=== PATIENT | female | born 1940 | race Caucasian/White ===

== ENCOUNTER → 2018-03-31 10:40 | Outpatient (CLI) | payer MEDICARE, SELFPAY | PROVIDERS: Family Provider Internal Medicine; PCP Internal Medicine; Visit Provider Chiropractor | DX: M99.01 Segmental and somatic dysfunction of cervical region (principal); M99.03 Segmental and somatic dysfunction of lumbar region | CPT/HCPCS: 72040; 72110 ==

== ENCOUNTER → 2021-05-06 12:46 | Outpatient (CLI) | payer MEDICARE, SELFPAY ==
[2019-04-18 13:20] VITALS: BMI 27.7
--- NOTE | 2021-05-06 12:54 | CT_ITS ---
EXAM: CT LEFT LOWER EXTREMITY WITHOUT INTRAVENOUS CONTRAST : 1940 CLINICAL INDICATION: VARUS DEFORMITY,NOT ELSEWHERE CLASSIFIED,L KNEE TECHNIQUE: Helically acquired images were obtained of the left lower extremity without intravenous contrast. 2-D reformats were performed by the technologist. This CT exam was performed using one or more of the following dose reduction techniques: automated exposure control, adjustment of the mA and/or kV according to patient size, and/or use of iterative reconstruction technique. This report was created using [employer] report Pix[employer] technology. COMPARISON: None. FINDINGS: BONES/JOINTS: There is severe degenerative changes in the knee with tricompartmental joint space narrowing and large osteophytes. There are no fractures. The hip and ankle joint spaces are maintained. SOFT TISSUES: Unremarkable. No soft tissue swelling or gas. No radiopaque foreign body. CT/Extremity Lower without Contra IMPRESSION: Severe arthritic changes in the knee with tricompartmental joint space narrowing and large osteophytes. There are no acute osseous abnormalities within the left leg. Individualized dose optimization techniques were used for this CT. at 1759 Reported and signed by: Ruben Mcdonald MD Electronically Signed: Ruben Mcdonald MD at 17:58 EDT Tel , Service support ,
== END ==
PROVIDERS: PCP Internal Medicine; Referring Provider Specialist; Visit Provider Specialist
DX: M21.162 Varus deformity, not elsewhere classified, left knee (principal)
CPT/HCPCS: 73700

== ENCOUNTER 2021-05-22 06:29 | Day surgery (SDC) | payer MEDICARE, SELFPAY ==
[2019-04-18 13:20] VITALS: BMI 27.7
--- NOTE | 2021-05-06 13:30 | RAD_ITS ---
INDICATION: PREOP EXAMINATION/TECHNIQUE: X-RAY - XR Chest 2 Views COMPARISON: 12/26/2015. FINDINGS: LINES/DEVICES: None. LUNGS: No consolidation, edema or effusion. No pneumothorax. MEDIASTINUM AND CARDIOVASCULAR STRUCTURES: Cardiac silhouette not enlarged. Central airways and mediastinal contour are unremarkable. BONES AND SOFT TISSUES: Unremarkable. RAD/Chest PA and Lateral IMPRESSION: No radiographic evidence of acute cardiopulmonary disease. Electronically Signed: Ashwin Burnham MD at 14:45 EDT Tel , Service support ,
[2021-05-06 14:42] LABS: Absolute Lymphocyte Count 1.48 X10^3/uL (0.83-4.51); Absolute Neutrophil Count 4.7 X10^3/uL (2.0-7.7); Basophil# 0.02 X10^3/uL; Basophil% 0.3 % (0-1); Eosinophil# 0.12 X10^3/uL; Eosinophils% 1.7 % (0-5); Hematocrit 44.6 % (37-47); Hemoglobin 14.6 g/dL (12.0-15.0); Lymphocyte # 1.48 X10^3/ul (0.83-4.51); Lymphocyte % 21.2 % (19-41); Mean Corp Hgb Conc 32.7 g/dL (32-36); Mean Corpuscular Hgb 28.7 pg (27.0-32.0); Mean Corpuscular Volume 87.6 fL (81-99); Mean Platelet Vol. 9.7 fl (6.2-12.0); Monocyte# 0.61 X10^3/uL; Monocyte% 8.8 % (0-10); NRBC Flagged by Analyzer 0 % (0-5); Neutrophil # 4.71 X10^3/uL (2.7-7.7); Neutrophil % 67.6 % (47-70); Platelet Count 219 K/mm3 (150-450); RBC Distribution Width CV 12.9 % (11.6-14.6); RBC Distribution Width SD 41.1 fl (35.1-43.9); Red Blood Count 5.09 M/mm3 (4.2-5.4)
[2021-05-06 15:23] LABS: Anion Gap 3 (5-15); BUN 18 mg/dL (7-18); BUN/Creat Ratio 23.2 RATIO (10-20); Calcium,Total 9.4 mg/dL (8.5-10.1); Chloride 103 mmol/L (98-107); Creatinine, Serum 0.78 mg/dL (0.55-1.02); EST Glomerular Filtration Rate 76 mL/min (>60); Est Glom Filt Rate - Afr Amer 92 mL/min (>60); Glucose 104 mg/dL (74-106); Potassium 3.8 mmol/L (3.5-5.1); Sodium Level 139 mmol/L (136-145)
[2021-05-07 14:34] LABS: Magnesium 2.3 mg/dL (1.6-2.6); Thyroid Stim Hormone (TSH) 0.57 uIU/mL (0.358-3.74)
--- NOTE | 2021-05-08 09:24 | EKG12_ITS ---
Test Reason : PRE OP Blood Pressure : / mmHG Vent. Rate : 078 BPM Atrial Rate : 078 BPM P-R Int : 166 ms QRS Dur : 086 ms QT Int : 414 ms P-R-T Axes : 024 -42 037 degrees QTc Int : 471 ms Normal sinus rhythm Left axis deviation Poor R wave progression Abnormal ECG Confirmed by ALBA YEN, BENJAMIN ([id number]), newspaper editor managing TENNILLE MENDIOLA ([id number]) on 05/09/2021 9:11:21 AM Referred By: Rahat White Confirmed By:BENJAMIN WILLIS MD
[2021-05-17 11:39] LABS: Albumin, Serum 3.4 g/dL (3.2-5.0)
[2021-05-22] VITALS (12 sets, daily range): BP systolic 89–160; BP diastolic 56–92; PULSE 72–92; RESP 16; TEMP 35.9–37; O2SAT 92–100; BMI 29.0
[2021-05-22] MEDS: Lactated Ringers 1,000 ML 100 ML IV (06:40)
[2021-05-22] MEDS: Gabapentin 600 MG Tablet PO (07:30)
[2021-05-22] MEDS: Acetaminophen 500 MG Tablet 1000 MG PO ×2 (07:30→15:21)
[2021-05-22 07:45] LABS: Bedside Glucose 100 mg/dL (70-110)
[2021-05-22] MEDS: Cefazolin 2 GM in 0.9% Normal Saline 100 ML IV (08:51)
[2021-05-22] MEDS: dexAMETHasone 10 MG/ML Vial IV (09:00)
--- NOTE | 2021-05-22 10:06 | PCM.OPRPT ---
Report of Operation Date of Procedure: 05/22/21 Pre-Operative Diagnosis: Left knee primary osteoarthritis Post-Operative Diagnosis: Left knee primary osteoarthritis Surgery/Procedure Performed:: Left knee minimally invasive robotic assisted total knee replacement Description of Surgical Findings:: Stable knee with good patella tracking Surgeon: Rahat White combat systems officer: Irno Coffman Type of Anesthesia: Spinal Anesthesiologist: Manuel Arriaga Special Medications: 2 g Ancef, 1 g TXA at incision, 1 g TXA closure, 10 mg Decadron, joint cocktail (5 mg Duramorph, 30 mL of 0.5% Ropivicaine, 1000 units of epinephrine, 30 mg of Toradol) Specimen's removed: Bony cuts Estimated Blood Loss (mL): 100 Fluids Replaced: 1200 mL crystalloid Description of Procedure: Implants used: 1. Hcristian size 5 triathlon cruciate retaining distal femoral press-fit component 2. [place] size 5 press-fit tritanium tibial baseplate 3. Christian X3 11 mm CS polyethylene 4. [place] X3 32 mm asymmetric patella Brief history operative indications: 80-year-old M with history of left knee osteoarthritis with radiographic findings with loss of joint space, osteophyte formation and subchondral sclerosis. Failed conservative measures as mentioned in the H&P. Discussion of total knee arthroplasty as well as risk and benefits were discussed the patient including but not limited to blood loss, DVTs, PEs, neurovascular damage, general risk of anesthesia including loss of life, and stiffness or instability were discussed with patient. Patient demonstrated understanding and was able to sign informed consent. Procedure: On the date of procedure patient's left lower extremity was marked in the preoperative area. The patient was then taken back to the operating room where the patient was placed on the table in the supine position. All bony prominences were identified a well-padded. Anesthesia assumed control of the C-spine and airway and remained controlled throughout the remainder of the procedure. A tourniquet was placed on the left upper thigh and the leg was prepped in a sterile fashion. The surgeon then scrubbed at this time .Upon reentering the room left lower extremity was draped in a standard orthopedic fashion. A timeout was then called and everyone agreed upon the side, the site, the procedure to be performed, patient's identity and antibiotics given. Esmarch bandage was used to exsanguinate the extremity and the tourniquet was placed up to 250 mmHg with the knee in flexion. A midline skin incision was made and sharp dissection was taken down through skin subcutaneous tissue and fat. The standard medial parapatellar incision was made and the patella was subluxed laterally. An Appropriate deep MCL release was done and the fat pad was resected. Our attention was then directed to the patella. The patella was everted and a flat resection was made. The knee was then flexed up in 2 femoral pins were placed inside the incision and 2 tibial pins were placed outside the incision in the medial tibia bicortically. Once this was completed the 2 checkpoints in the femur and tibia were placed. Knee was then flexed up and the bony landmarks were registered. Once this was completed knee was taken through range of motion and manually stressed allowing us to a plan for an appropriate tibial cut. The robotic arm was brought into the field sterilely and checkpoint and saw were registered. Based on the patient's deformity the tibial cut was made neutral to the tibial axis. At this time the tensioner was then placed in the joint and ligament tension was checked at 90 degrees and full extension. Based on the patient's ligamentous tension appropriate adjustments were made to the operative plan and ligament releases were done. Once we were happy with our operative plan with balanced flexion and extension gaps our attention was directed to the femur. The robot was brought into the field sterilely and registered. Posterior condylar cuts, anterior chamfer cuts and anterior cuts were appropriately made for a size 5 femur. When these were completed the saws were switched out in the distal femoral and posterior chamfer cuts were made. Protecting the soft tissue throughout this time. A size 5 tibial base plate was selected. the knee was flexed to 90 degrees and the soft tissues and posterior osteophytes were removed from the joint. 40 cc of the periarticular injection was injected into the posterior medial corner of the joint. The appropriate trials were then placed on the femur and tibia. A trial polyethylene was trialed to ensure proper balancing and stability of the knee. The appropriate tibial internal rotation was then marked with a bovie. Our attention was then directed to the patella. The lug holes were drilled and the patella trial was placed. Patellar tracking was checked and deemed appropriate. Once we were happy lug holes were drilled for the femur and trial components were removed. the tibia was subluxed and pinned into place and the keel was punched and drilled appropriately. Final components were verified and opened, and cement was mixed in a vacuum. [place] Simplex cement was used. The wound was copiously irrigated with normal saline. When the cement was ready the components were impacted into place starting with the tibia, femur the femur did not fit well when testing so we did cement the femur the tibia was solidly fixed on testing of press-fit implant. And finally cementing the patella. The trial poly component was placed and the knee was placed in full extension. All excess cement was removed in the process. Once the cement had cured the tracking, alignment and balance were verified and a size 11 mm CS polyethylene component was placed. Once the final components were placed a 3-minute dilute Betadine lavage was performed followed by an Irrisept lavage was performed and the wound was copiously irrigated with normal saline solution and the periarticular injection was given. The wound was closed in a layer martinez fashion using #1 vicryl interrupted sutures for the arthrotomy, 2-0 interrupted Vicryl suture for the subcuticular layer and david for final skin closure. A sterile compressive dressing was then placed. The patient was then awakened from anesthesia, transferred to the [facility] and transferred to the PACU for recovery. Post op plan DVT ppx: ASA 81mg BID, thigh high compression stockings Follow up: in office in 2 weeks for wound check PT: to start POD #0 at hospital, outpatient PT should be arranged. My physician information technology assistant was a vital part of this case. He was important in appropriate retraction during the case, and protection of soft tissues during bony cuts. His intimate knowledge of the case and my steps aided in safe and expedient completion of the procedure as well as appropriate position of the leg during the case. He was also vital in assisting with closure under my direct supervision. Due to the complexity of this case robotic arm was used to assist in the surgery to improve accuracy and clinical outcomes. Complications No intraoperative complications Admit VTE Documentation VTE Present on Admission: No VTE Mechan Device Prophylaxis: SCD's and Thigh High GUERRERO Hose VTE Pharm Prophylaxis ordered?: Yes
[2021-05-22] MEDS: Lactated Ringers 1,000 ML 999 ML IV (10:52)
--- NOTE | 2021-05-22 11:05 | RAD_ITS ---
STUDY: X-RAY - LEFT KNEE REASON FOR EXAM: Postoperative evaluation of left total knee arthroplasty. TECHNIQUE: 2 view(s) of the knee. COMPARISON: CT images 05/06/2021. FINDINGS: There is a left total knee arthroplasty without evidence of complication. There is postoperative gas in the soft tissues and overlying skin david. RAD/Knee 1 or 2 Views IMPRESSION: Uncomplicated left total knee arthroplasty. Electronically Signed: Keon Burrell MD at 11:41 EDT Tel , Service support ,
[2021-05-22] MEDS: Cefazolin 1 GM/50 ML BAG IV (13:46)
== END 2021-05-22 16:44 | disposition home or self-care (01) ==
LOC: SDC 06:30 → AC 06:31
PROVIDERS: Anesthesiology; PCP Internal Medicine; Referring Provider Specialist; Visit Provider Specialist
PROC: 0SRD0JZ Replacement of Left Knee Joint with Synthetic Substitute, Open Approach (ICD-10-PCS; CPT 27447; principal; 2021-05-22 08:15)
DX: M17.12 Unilateral primary osteoarthritis, left knee (principal); I10 Essential (primary) hypertension; J45.909 Unspecified asthma, uncomplicated; G47.30 Sleep apnea, unspecified; K21.9 Gastro-esophageal reflux disease without esophagitis; E78.00 Pure hypercholesterolemia, unspecified; K58.9 Irritable bowel syndrome, unspecified; G43.909 Migraine, unspecified, not intractable, without status migrainosus; E07.9 Disorder of thyroid, unspecified; M19.90 Unspecified osteoarthritis, unspecified site; Z79.899 Other long term (current) drug therapy
CPT/HCPCS: 01402; 27447; S2900; 36415; 71046; 73560; 80048; 82040; 82962; 83735; 84443; 85025; 87081; 93005; 97162; C1776; J7120; J2405

== ENCOUNTER 2021-09-26 12:09 | Outpatient (CLI) | payer MEDICARE, SELFPAY ==
[2021-09-26 12:25] VITALS: BP 143/98; PULSE 81; RESP 16; TEMP 37.1; O2SAT 98; BMI 29.3
[2021-09-26 13:09] VITALS: BP 138/81; PULSE 70; RESP 16; TEMP 36.8; O2SAT 95
[2021-09-26 14:03] VITALS: BP 133/88; PULSE 63; RESP 16; TEMP 36.8; O2SAT 94
== END 2021-09-26 23:59 | disposition home or self-care (01) ==
LOC: MS3OUT 12:09 → MS3 12:10
PROVIDERS: PCP Internal Medicine; Referring Provider Nurse Practitioner Adult Health; Visit Provider Nurse Practitioner Adult Health
DX: Z23 Encounter for immunization (principal); U07.1 COVID-19
CPT/HCPCS: J7050; M0245; Q0245

== ENCOUNTER → 2023-04-01 | Outpatient (CLI) | payer MEDICARE, SELFPAY ==
--- NOTE | 2023-04-01 12:21 | US_ITS ---
INDICATION: UTI EXAMINATION: US Kidney(s) complete (eg, kidneys and bladder) TECHNIQUE: Dumont scale and color doppler images were obtained of the kidneys. COMPARISON: None. FINDINGS: RIGHT KIDNEY: Measures 11 cm in length.. There is no hydronephrosis. No shadowing calculus, focal lesion or perinephric collection is demonstrated. LEFT KIDNEY: Measures 11.9 cm in length.. There is no hydronephrosis. No shadowing calculus, focal lesion or perinephric collection is demonstrated. URINARY BLADDER: No acute abnormality. US/Kidney and Bladder IMPRESSION: Normal renal ultrasound. Electronically Signed: Manny Park MD at 20:52 EDT ,
== END | disposition home or self-care (01) ==
PROVIDERS: PCP Internal Medicine; Referring Provider Urology; Visit Provider Urology
DX: N39.0 Urinary tract infection, site not specified (principal)
CPT/HCPCS: 76770

== ENCOUNTER 2023-12-28 02:25 | Emergency (ER) | payer MEDICARE, SELFPAY ==
[2023-12-28 02:26] VITALS: BP 198/108; PULSE 85; RESP 16; TEMP 37.1; O2SAT 92; BMI 31.3
[2023-12-28 02:32] VITALS: BP 183/102; PULSE 82; RESP 18; O2SAT 96
--- NOTE | 2023-12-28 02:36 | EKG12_ITS ---
Test Reason : DYSRHYTHMIA Blood Pressure : / mmHG Vent. Rate : 082 BPM Atrial Rate : 082 BPM P-R Int : 196 ms QRS Dur : 112 ms QT Int : 404 ms P-R-T Axes : 014 -54 008 degrees QTc Int : 472 ms Normal sinus rhythm Left anterior fascicular block Moderate voltage criteria for LVH, may be normal variant ( R in aVL , [place] product ) Abnormal ECG POOR R WAVE PROGRESSION Confirmed by Gilberto Fraser ([id number]), web editor BAN CALLAHAN ([id number]) on 12/28/2023 10:02:44 AM Referred By: Confirmed By:Gilberto Fraser
--- NOTE | 2023-12-28 02:54 | CT_ITS ---
INDICATION: headache EXAMINATION: CT Head or Brain W/O Contrast Injection TECHNIQUE: Multiple axial images were obtained of the head without intravenous contrast. A radiation dose optimization technique was used for this scan. IV Contrast dosage and agent: None. COMPARISON: No comparison imaging received. CT brain report from 10/11/2015 is reviewed. FINDINGS: BRAIN PARENCHYMA: No intra- or extra-axial hemorrhage. No evidence of acute major territorial infarct. No intracranial mass or mass effect. 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 Chronic cerebral involutional changes. CSF SPACES: Prominent cerebral sulci and extraaxial spaces secondary to involutional changes. No hydrocephalus. Basal cisterns are patent. Intracranial atherosclerotic calcifications. 12 mm calcification just to the right of medulla below foramen magnum. CALVARIUM, SKULL BASE, PARANASAL SINUSES AND MASTOID AIR CELLS: Calvarium is intact. 17 mm ovoid medium attenuation structure at abutting left anterior maxilla at anterior nasal cavity. Mastoid air cells are well-pneumatized. ORBITS: No acute findings, as visualized. CT/Brain/Head without Contrast IMPRESSION: 1. Cerebral atrophy and chronic small vessel ischemic changes. 2. Small intraspinal, extramedullary calcification at right cervicomedullary junction possibly representing small chronic calcified meningioma or prominent vascular calcification. Follow-up as clinically warranted. 3. Probable polyp versus proteinaceous cyst or dentigerous cyst at left nasomaxillary junction. Correlate visually and with physical exam. This was also described in prior report. Electronically Signed: Simon Mcnamara MD at 3:53 EDT ,
--- NOTE | 2023-12-28 03:00 | EX.ED.DYSGE1 ---
HPI History of Present Illness Chief Complaint: Hypertension Informant: patient and spouse/S.O. Narrative Narrative: Patient is a 83-year-old female who lives at home with her with past medical history of hypertension and hypothyroidism. She states that she has been taking her blood pressure medications as directed. She denies any excessive stimulant use or illicit drug use. She does state that there has been a great deal of stress occurring at home. She states she went to bed feeling normal and then awoke with a headache and some tingling in her left arm. She states that a few times in the past she has had similar symptoms when her blood pressure has spiked. She states she checked her pressure at home because of this and it was elevated. She states she tried to relax and allow the blood pressure to improve but it has not done so and secondary to this she comes in for evaluation [facility] Medical History Arthritis Back pain Cardiology follow-up encounter Chronic bronchitis Chronic cough Chronic headaches CPAP (continuous positive airway pressure) dependence DDD (degenerative disc disease), lumbar Environmental allergies Gastric reflux High cholesterol High triglycerides History of echocardiogram History of IBS History of pain when walking History of stress test Hx of fracture of arm Hx of sebaceous cyst Hypertension IBS (irritable bowel syndrome) Migraine headache Non-smoker Osteoarthritis Rash Sleep apnea Thyroid disease Wears glasses Home Medications carvedilol 12.5 mg tablet 12.5 mg PO BID 10/11/15 [History Last Taken 05/22/21] levothyroxine 175 mcg tablet 175 mcg PO SUTUWETHFRSA 10/11/15 [History Last Taken Unknown] lisinopril 20 mg tablet 20 mg PO QHS 10/11/15 [History Last Taken Unknown] montelukast 10 mg tablet 10 mg PO QHS 10/11/15 [History Last Taken Unknown] potassium chloride 10 mEq tablet,extended release(part/cryst) 20 meq PO DAILY 10/11/15 [History Last Taken Unknown] L.acidoph, paracasei,B. lactis 10 billion cell capsule 1 ea PO DAILY 02/04/17 [History Last Taken Unknown] amlodipine 5 mg tablet 2.5 mg PO DAILY 02/04/17 [History Last Taken Unknown] biotin 1 mg tablet 1 mg PO DAILY 02/04/17 [History Last Taken Unknown] desloratadine 5 mg tablet (Clarinex) 5 mg PO DAILY 02/04/17 [History Last Taken Unknown] multivitamin (Multiple Vitamins tablet) 1 tab PO DAILY 02/04/17 [History Last Taken Unknown] albuterol sulfate 90 mcg/actuation aerosol inhaler 1 puff inhalation PRN PRN asthma 05/07/21 [History Last Taken Unknown] fluticasone propionate 110 mcg/actuation HFA aerosol inhaler (Flovent HFA) 2 puff inhalation BID asthma 05/07/21 [History Last Taken Unknown] levothyroxine 150 mcg tablet 150 mcg PO MO 05/07/21 [History Last Taken 05/22/21] omeprazole 40 mg capsule,delayed release 40 mg PO DAILY 05/07/21 [History Last Taken 05/22/21] vit C 250 mg-vit E 90 mg-zinc 40 mg-copper 1 [id number] capsule (PreserVision AREDS-2) 1 tab PO BID 05/07/21 [History Last Taken Unknown] Allergy/AdvReac Type Severity Reaction Status Date / Time Sulfa (Sulfonamide Allergy Swelling Verified 12/28/23 02:26 Antibiotics) azithromycin AdvReac Diarrhea Verified 12/28/23 02:26 [From Zithromax Z-Riky] codeine AdvReac Vomiting Verified 12/28/23 02:26 Opioids - Morphine Analogues AdvReac NAUSEA/VOMI Verified 12/28/23 02:26 [narcotics] TING Penicillins AdvReac Other Verified 12/28/23 02:26 Surgical History History of cardiac catheterization History of total right knee replacement Hx of bladder repair surgery Hx of hysterectomy, total Hx of inguinal hernia surgery Hx of left knee surgery Hx of tubal ligation Hx of varicose vein stripping Social History Smoking Status: Never smoker ROS ROS ED Constitutional Constitutional ED: Denies chills or fever(s) Eyes Eyes: Denies blurry vision or change in vision ENT ENT ED: Denies sore throat Cardiovascular Cardiovascular: Denies chest pain, palpitations or racing heartbeat Respiratory/Chest Respiratory/Chest: Denies cough or dyspnea Gastrointestinal Gastrointestinal: Denies abdominal pain, diarrhea, nausea or vomiting Genitourinary Genitourinary ED: Denies dysuria Musculoskeletal Musculoskeletal: Denies myalgias Integumentary Denies rash Neurologic Neurologic: Reports headache(s) and paresthesias Hematologic/Lymphatic Hematologic/Lymphatic: Denies easy bleeding or easy bruising EXAM Physical Exam Const Vital Signs: 12/28/23 02:26 12/28/23 02:30 12/28/23 02:32 Temperature 98.8 F Temperature Source Oral Pulse Rate 85 82 Respiratory Rate 16 18 Respiratory Effort Non-Labored Respiratory Pattern Normal Blood Pressure 198/108 H 183/102 H Blood Pressure Mean 138 129 Pulse Ox 92 96 Oxygen Delivery Method Room Air 12/28/23 04:09 Temperature Temperature Source Pulse Rate 76 Respiratory Rate 20 H Respiratory Effort Respiratory Pattern Blood Pressure 130/91 H Blood Pressure Mean 104 Pulse Ox 93 Oxygen Delivery Method Room Air Positive well nourished and well developed General Appearance ED: well developed; Negative for pallor HEENT HEENT Narrative: Normocephalic atraumatic Eyes PERRL and EOMs intact bilaterally General Eye ED: Negative for pale conjunctiva or scleral icterus Neck supple Neck Narrative: No nuchal rigidity or meningeal signs Resp normal respiratory effort and clear to auscultation bilaterally Resp Narrative: No nasal flaring retractions tachypnea or accessory muscle use Cardio regular rate and regular rhythm Rate: other Other Details: Heart is regular rate and rhythm without murmurs rubs or gallops Radial and carotid pulses are equal and symmetric No carotid bruit noted GI normal to inspection, nondistended, normoactive bowel sounds, non-tender, non-distended and no masses GI Narrative: No voluntary guarding or rigidity No pulsatile mass or fluid wave Auscultation: normoactive bowel sounds Palpation: soft Extremity normal to inspection Extremity Narrative: No asymmetric edema no pitting edema negative Homans' sign bilaterally Neuro oriented x3, CN's II-XII intact bilaterally and no sensory deficits noted Neuro Narrative: Cranial nerves II through XII are grossly intact there are no focal neurologic deficits No pronator drift no dysmetria no truncal ataxia NIH stroke scale score of 0 Sensorium / Orientation: alert Motor Exam: strength 5/5 throughout Psych mental status grossly normal Skin no rashes or lesions noted, no wounds and skin turgor normal General Skin Exam: Negative for jaundice or pallor MDM MDM MDM Narrative Medical decision making narrative: Patient arrived to the ER hypertensive otherwise with stable vitals. She reported taking her medications as directed and denied any history of illicit drug use or excessive stimulant use. She did report recent stress factors at home which are most likely driving her hypertension. She had a normal neurologic exam and no signs of endorgan damage but with concern for hypertension driving her headache which could lead to a spontaneous subarachnoid versus subdural hematoma or potential acute coronary syndrome or acute kidney injury basic blood tests and head CT were obtained. Labs revealed no signs of acute ACS with a troponin of 4 and no signs of acute kidney injury. Head CT revealed no acute bleed or mass. Patient was given IV labetalol and oral clonidine and her blood pressure reduced approximately 25% which is the goal reduction value in the ER. On reevaluation her neurologic exam remains normal and therefore she does not have signs of acute coronary syndrome spontaneous brain bleed acute kidney injury or hypertensive encephalopathy and her blood pressure has reduced the goal amount there is no need to keep her in the ER any longer and she is otherwise safe for discharge. History & Record Review Discussion w/independent historian: Patient and Significant other Lab Data Attestation: I reviewed the patient's lab results. Labs: Laboratory Results - last 24 hr 12/28/23 02:39 WBC 7.9 RBC 5.12 Hgb 14.7 Hct 45.5 MCV 88.9 MCH 28.7 MCHC 32.3 RDW Std Deviation 42.5 RDW Coeff of Collin 13.0 Plt Count 215 MPV 9.1 Immature Gran % (Auto) 0.400 Neut % (Auto) 63.3 Lymph % (Auto) 22.1 [place] % (Auto) 11.5 H Eos % (Auto) 2.4 Baso % (Auto) 0.3 Absolute Neuts (auto) 5.0 Absolute Lymphs (auto) 1.75 Nucleated RBC % 0 Sodium 138 Potassium 3.8 Chloride 102 Carbon Dioxide 31.0 Anion Gap 5 BUN 21 H Creatinine 0.72 Estim Creat Clear Calc 61.63 Est GFR (MDRD) Af Amer 100 Est GFR (MDRD) Non-Af 82 BUN/Creatinine Ratio 29.1 H Glucose 121 H Calcium 9.1 Troponin I High Sens 4 Radiography Diagnostic Testing: Clinical Impression(s) from Imaging Studies Brain CT 12/28/23 02:54 IMPRESSION: 1. Cerebral atrophy and chronic small vessel ischemic changes. 2. Small intraspinal, extramedullary calcification at right cervicomedullary junction possibly representing small chronic calcified meningioma or prominent vascular calcification. Follow-up as clinically warranted. 3. Probable polyp versus proteinaceous cyst or dentigerous cyst at left nasomaxillary junction. Correlate visually and with physical exam. This was also described in prior report. Electronically Signed: Simon Mcnamara MD at 3:53 EDT , Discharge Plan Triage Chief Complaint: Hypertension ED Provider: Dmitry Luther Dx/Rx/DC Orders Clinical Impression: Accelerated hypertension, Hypothyroidism Instructions: ED Hypertension, Established Prescriptions: No Action levothyroxine 175 MCG tablet 175 mcg PO SUTUWETHFRSA Patient Comments: thyroid carvedilol 12.5 MG tablet 12.5 mg PO BID Patient Comments: heart rate/ blood pressure lisinopril 20 MG tablet 20 mg PO QHS Patient Comments: blood pressure montelukast 10 MG tablet 10 mg PO QHS Patient Comments: allergies potassium chloride 10 MEQ tablet 20 meq PO DAILY Patient Comments: supplement multivitamin [Multiple Vitamins] 1 EACH tablet 1 tab PO DAILY amlodipine 5 MG tablet 2.5 mg PO DAILY desloratadine [Clarinex] 5 MG tablet 5 mg PO DAILY biotin 1 MG tablet 1 mg PO DAILY L.acidoph, paracasei,B. lactis 1 EACH capsule 1 ea PO DAILY omeprazole 40 mg capsule,delayed release(DR/EC) 40 mg PO DAILY Patient Comments: take 1 capsule by mouth once daily levothyroxine 150 mcg Tablet 150 mcg PO MO albuterol sulfate 90 mcg/actuation HFA aerosol inhaler 1 puff INHALATION PRN PRN (Reason: asthma) Patient Comments: inhale 2 puffs by mouth and INTO THE LUNGS every 4 hours if needed for wheezing SHORTNESS OF BREATH fluticasone propionate [Flovent HFA] 110 mcg/actuation HFA aerosol inhaler 2 puff INHALATION BID PreserVision AREDS-2 250-90-40-1 mg Capsule 1 tab PO BID Primary Care Provider: Shandra Bills Referrals: Shandra Bills MD [Primary Care Provider] - Activity Restrictions/Additional Instructions: Please continue all of your medication as directed by your family doctor. Please keep track of your blood pressure a few times each week and discuss with your doctor potential need for additional or increase of medication if it remains elevated. Return to the ER should you have worsening symptoms or any further concerns Disposition Disposition: Home, Self Care
[2023-12-28] MEDS: Labetalol (Prefilled) 20 MG/4 ML 10 MG IV (03:03)
[2023-12-28] MEDS: cloNIDine HCl 0.1 MG Tablet PO (03:03)
[2023-12-28 03:04] LABS: Absolute Lymphocyte Count 1.75 X10^3/uL (0.83-4.51); Basophil# 0.02 X10^3/uL; Basophil% 0.3 % (0-1); Eosinophil# 0.19 X10^3/uL; Eosinophils% 2.4 % (0-5); Hematocrit 45.5 % (37-47); Hemoglobin 14.7 g/dL (12.0-15.0); Lymphocyte # 1.75 X10^3/ul (0.83-4.51); Lymphocyte % 22.1 % (19-41); Mean Corp Hgb Conc 32.3 g/dL (32-36); Mean Corpuscular Hgb 28.7 pg (27.0-32.0); Mean Corpuscular Volume 88.9 fL (81-99); Mean Platelet Vol. 9.1 fl (6.2-12.0); Monocyte# 0.91 X10^3/uL; Monocyte% 11.5 % (0-10); NRBC Flagged by Analyzer 0 % (0-5); Neutrophil # 5.01 X10^3/uL (2.7-7.7); Neutrophil % 63.3 % (47-70); Platelet Count 215 K/mm3 (150-450); RBC Distribution Width SD 42.5 fl (35.1-43.9); Red Blood Count 5.12 M/mm3 (4.2-5.4); White Blood Count 7.9 K/mm3 (4.4-11.0)
[2023-12-28 03:23] LABS: Anion Gap 5 (5-15); BUN 21 mg/dL (7-18); BUN/Creat Ratio 29.1 RATIO (10-20); Calcium,Total 9.1 mg/dL (8.5-10.1); Chloride 102 mmol/L (98-107); Creatinine, Serum 0.72 mg/dL (0.55-1.02); EST Glomerular Filtration Rate 82 mL/min (>60); Est Glom Filt Rate - Afr Amer 100 mL/min (>60); Estimated Creatinine Clearance 61.63 ml/min; Glucose 121 mg/dL (74-106); Potassium 3.8 mmol/L (3.5-5.1); Sodium Level 138 mmol/L (136-145); Troponin-I HS 4 pg/mL (3.0-54.0)
[2023-12-28 04:09] VITALS: BP 130/91; PULSE 76; RESP 20; O2SAT 93
[2023-12-28 04:25] VITALS: BP 115/79; PULSE 72; RESP 17; O2SAT 92
[2023-12-28 04:29] VITALS: BP 115/79; PULSE 71; RESP 20; TEMP 36.7; O2SAT 92
== END 2023-12-28 04:30 | disposition home or self-care (01) ==
PROVIDERS: Emergency Provider Emergency Medicine; PCP Internal Medicine; Visit Provider Emergency Medicine
DX: I10 Essential (primary) hypertension (principal); E03.9 Hypothyroidism, unspecified; Z79.899 Other long term (current) drug therapy; G47.30 Sleep apnea, unspecified; Z99.89 Dependence on other enabling machines and devices; E78.00 Pure hypercholesterolemia, unspecified; Z96.651 Presence of right artificial knee joint; Z90.710 Acquired absence of both cervix and uterus; Z98.51 Tubal ligation status
CPT/HCPCS: 70450; 80048; 84484; 85025; 93005; 96374; 99283; A4216

== ENCOUNTER 2024-02-10 15:31 | Emergency (ER) | payer MEDICARE, SELFPAY ==
[2024-02-10 15:32] VITALS: BP 173/103; PULSE 85; RESP 16; TEMP 36.8; O2SAT 96; BMI 30.9
--- NOTE | 2024-02-10 15:47 | EDS_ITS ---
HPI History of Present Illness Chief Complaint: Nosebleed Narrative Narrative: 83-year-old female past medical history of sleep apnea on pillow nasal cannula and CPAP presents with nosebleed since yesterday. She states that she had blood coming from her right nares 3-4 times yesterday. It was intermittent and had stopped. She made it through the night. This morning, she was sitting, she felt her nosebleeding again. She denies any chest pain or shortness of breath, states she may feel intermittently lightheaded. She denies other bleeding diathesis. She does not take blood thinners with exception of a baby aspirin. [facility] Medical History Wears glasses Rash Thyroid disease Arthritis Back pain Migraine headache History of IBS Gastric reflux Non-smoker CPAP (continuous positive airway pressure) dependence Sleep apnea Chronic cough History of pain when walking History of echocardiogram History of stress test Hypertension Cardiology follow-up encounter Hx of sebaceous cyst Hx of fracture of arm DDD (degenerative disc disease), lumbar Osteoarthritis IBS (irritable bowel syndrome) High triglycerides High cholesterol Chronic headaches Chronic bronchitis Environmental allergies Home Medications ?Medication ?Instructions ?Recorded ?Last Taken ?Type carvedilol 12.5 mg tablet 12.5 mg PO BID 10/11/15 05/22/21 History levothyroxine 175 mcg tablet 175 mcg PO SUTUWETHFRSA 10/11/15 Unknown History lisinopril 20 mg tablet 20 mg PO QHS 10/11/15 Unknown History montelukast 10 mg tablet 10 mg PO QHS 10/11/15 Unknown History potassium chloride 10 mEq 20 meq PO DAILY 10/11/15 Unknown History tablet,extended release(part/cryst) L.acidoph, paracasei,B. lactis 10 1 ea PO DAILY 02/04/17 Unknown History billion cell capsule amlodipine 5 mg tablet 2.5 mg PO DAILY 02/04/17 Unknown History biotin 1 mg tablet 1 mg PO DAILY 02/04/17 Unknown History desloratadine 5 mg tablet 5 mg PO DAILY 02/04/17 Unknown History (Clarinex) multivitamin (Multiple Vitamins 1 tab PO DAILY 02/04/17 Unknown History tablet) albuterol sulfate 90 mcg/actuation 1 puff inhalation PRN PRN asthma 05/07/21 Unknown History aerosol inhaler fluticasone propionate 110 2 puff inhalation BID asthma 05/07/21 Unknown History mcg/actuation HFA aerosol inhaler (Flovent HFA) levothyroxine 150 mcg tablet 150 mcg PO MO 05/07/21 05/22/21 History omeprazole 40 mg capsule,delayed 40 mg PO DAILY 05/07/21 05/22/21 History release vit C 250 mg-vit E 90 mg-zinc 40 1 tab PO BID 05/07/21 Unknown History mg-copper 1 [id number] capsule (PreserVision AREDS-2) Allergy/AdvReac Type Severity Reaction Status Date / Time Sulfa (Sulfonamide Allergy Swelling Verified 02/10/24 15:34 Antibiotics) azithromycin (From Zithromax AdvReac Diarrhea Verified 02/10/24 15:34 Z-Riky) codeine AdvReac Vomiting Verified 02/10/24 15:34 Opioids - Morphine Analogues AdvReac NAUSEA/VOMI Verified 02/10/24 15:34 (narcotics) TING Penicillins AdvReac Other Verified 02/10/24 15:34 Surgical History History of cardiac catheterization Hx of varicose vein stripping Hx of left knee surgery Hx of tubal ligation Hx of hysterectomy, total Hx of inguinal hernia surgery Hx of bladder repair surgery History of total right knee replacement Social History Smoking Status: Never smoker ROS ROS ED ROS Narrative Constitutional: No fever, no chills. HEENT: No sore throat. No neck pain. No loss of vision. No rhinorrhea. Positive epistaxis right nares. Cardiovascular: No chest pain. No palpitations. No pedal edema. Respiratory: No cough, no shortness of breath. Abdominal: No abdominal pain. No nausea. No vomiting. Genitourinary: No dysuria. No hematuria. Musculoskeletal: No myalgias. No arthralgias. Neurologic: No headaches. No dizziness. No lightheadedness. Skin: No rash. No change in color. Psychiatric: No depression. No anxiety. EXAM Physical Exam Narrative Exam Narrative: Afebrile. Vital signs noted. Regular rate and rhythm. Lungs clear to auscultation bilaterally. Abdomen soft nontender with normal active bowel sounds. Neurological examination shows her to be awake, alert, and ambulatory. Moves all extremities. No noted bleeding diathesis. Has Kleenex stuffed in right nares. No posterior pharynx rapid bleeding. Const Vital Signs: 02/10/24 15:32 Temperature 98.2 F Temperature Source Temporal Pulse Rate 85 Respiratory Rate 16 Blood Pressure 173/103 H Blood Pressure Mean 126 Pulse Ox 96 Oxygen Delivery Method Room Air MDM MDM MDM Narrative Medical decision making narrative: I discussion with the patient regarding nasal packing. She is concerned because she may need to wear her CPAP at night. This may be the cause of her epistaxis because of dry tissues. I will anesthetize the area with a cotton balls soaked in lidocaine 4% and Afrin after she clears any clots from the right nares. After cottonball was removed, there seems to be an area of anterior bleeding at Olegario backs area. Silver nitrate was used to cauterize the area. After 10 to 15 minutes, she was reexamined. There is no epistaxis, and there is no posterior pharynx bleeding. At this point in time, I feel she can be discharged to follow-up with otolaryngology. She will return with increased bleeding, new or worsening symptoms. Disposition is discharged home in improved and stable condition. Discharge Plan Triage Chief Complaint: Nosebleed ED Provider: Mingo Landis Dx/Rx/DC Orders Clinical Impression: Epistaxis Instructions: ED Epistaxis (Adult) Prescriptions: No Action levothyroxine 175 MCG tablet 175 mcg PO SUTUWETHFRSA Patient Comments: thyroid carvedilol 12.5 MG tablet 12.5 mg PO BID Patient Comments: heart rate/ blood pressure lisinopril 20 MG tablet 20 mg PO QHS Patient Comments: blood pressure montelukast 10 MG tablet 10 mg PO QHS Patient Comments: allergies potassium chloride 10 MEQ tablet 20 meq PO DAILY Patient Comments: supplement multivitamin [Multiple Vitamins] 1 EACH tablet 1 tab PO DAILY amlodipine 5 MG tablet 2.5 mg PO DAILY desloratadine [Clarinex] 5 MG tablet 5 mg PO DAILY biotin 1 MG tablet 1 mg PO DAILY L.acidoph, paracasei,B. lactis 1 EACH capsule 1 ea PO DAILY omeprazole 40 mg capsule,delayed release(DR/EC) 40 mg PO DAILY Patient Comments: take 1 capsule by mouth once daily levothyroxine 150 mcg Tablet 150 mcg PO MO albuterol sulfate 90 mcg/actuation HFA aerosol inhaler 1 puff INHALATION PRN PRN (Reason: asthma) Patient Comments: inhale 2 puffs by mouth and INTO THE LUNGS every 4 hours if needed for wheezing SHORTNESS OF BREATH fluticasone propionate [Flovent HFA] 110 mcg/actuation HFA aerosol inhaler 2 puff INHALATION BID PreserVision AREDS-2 250-90-40-1 mg Capsule 1 tab PO BID Primary Care Provider: Shandra Bills Referrals: Manny Yanez MD [Med Staff - Active Staff] - 3-5 Days Shandra Bills MD [Primary Care Provider] - Activity Restrictions/Additional Instructions: Return with increased bleeding, new or worsening symptoms. Print Language: Sami Disposition Disposition: Home, Self Care
[2024-02-10] MEDS: Oxymetazoline 0.05% 1 SPRAY SPRAY.BTL 2 SPRAY NASAL (15:52)
[2024-02-10] MEDS: Lidocaine 4% 50 ML Bottle TOPICAL (15:53)
[2024-02-10] MEDS: Silver Nitrate (BKC) 1 EACH TOPICAL (16:26)
== END 2024-02-10 17:02 | disposition home or self-care (01) ==
PROVIDERS: Emergency Provider Emergency Medicine; PCP Internal Medicine; Visit Provider Emergency Medicine
DX: R04.0 Epistaxis (principal); G47.30 Sleep apnea, unspecified; Z99.89 Dependence on other enabling machines and devices; Z79.82 Long term (current) use of aspirin; I10 Essential (primary) hypertension; E78.00 Pure hypercholesterolemia, unspecified; Z79.899 Other long term (current) drug therapy; K21.9 Gastro-esophageal reflux disease without esophagitis; Z98.51 Tubal ligation status; Z90.710 Acquired absence of both cervix and uterus; Z96.651 Presence of right artificial knee joint
CPT/HCPCS: 30901; 99282

== ENCOUNTER 2024-02-16 19:49 | Emergency (ER) | payer MEDICARE, SELFPAY ==
[2024-02-16 19:50] VITALS: BP 207/113; PULSE 88; RESP 16; TEMP 37; O2SAT 100; BMI 30.8
[2024-02-16 20:22] VITALS: BP 158/99
[2024-02-16 22:00] VITALS: BP 165/105; PULSE 78; RESP 18; O2SAT 98
[2024-02-16] MEDS: Mixture 30 ML Bottle 5 ML TOPICAL (22:10)
[2024-02-16] MEDS: Acetaminophen 325 MG Tablet 650 MG PO (23:10)
[2024-02-16 23:11] VITALS: BP 164/101; PULSE 77; RESP 16; TEMP 37; O2SAT 98
--- NOTE | 2024-02-16 23:50 | EDS_ITS ---
HPI History of Present Illness Chief Complaint: Nosebleed Informant: patient and spouse/S.O. Narrative Narrative: 83-year-old female history of variable hypertension presenting to the emergency room with epistaxis. Patient states symptoms began abruptly prior to arrival. She notes that her blood pressure is typically very high and then down suddenly. She states it is not abnormal for her to have such variation. She states she was in the emergency department out 2 weeks ago for an anterior epistaxis. She states they used silver nitrate and some medicine to help shrink the blood vessel. She did not have to follow-up with anybody. She did start aspirin a couple days ago. [facility] Medical History Wears glasses Rash Thyroid disease Arthritis Back pain Migraine headache History of IBS Gastric reflux Non-smoker CPAP (continuous positive airway pressure) dependence Sleep apnea Chronic cough History of pain when walking History of echocardiogram History of stress test Hypertension Cardiology follow-up encounter Hx of sebaceous cyst Hx of fracture of arm DDD (degenerative disc disease), lumbar Osteoarthritis IBS (irritable bowel syndrome) High triglycerides High cholesterol Chronic headaches Chronic bronchitis Environmental allergies Home Medications ?Medication ?Instructions ?Recorded ?Last Taken ?Type carvedilol 12.5 mg tablet 12.5 mg PO BID 10/11/15 05/22/21 History levothyroxine 175 mcg tablet 175 mcg PO SUTUWETHFRSA 10/11/15 Unknown History lisinopril 20 mg tablet 20 mg PO QHS 10/11/15 Unknown History montelukast 10 mg tablet 10 mg PO QHS 10/11/15 Unknown History potassium chloride 10 mEq 20 meq PO DAILY 10/11/15 Unknown History tablet,extended release(part/cryst) L.acidoph, paracasei,B. lactis 10 1 ea PO DAILY 02/04/17 Unknown History billion cell capsule amlodipine 5 mg tablet 2.5 mg PO DAILY 02/04/17 Unknown History biotin 1 mg tablet 1 mg PO DAILY 02/04/17 Unknown History multivitamin (Multiple Vitamins 1 tab PO DAILY 02/04/17 Unknown History tablet) albuterol sulfate 90 mcg/actuation 1 puff inhalation PRN PRN asthma 05/07/21 Unknown History aerosol inhaler fluticasone propionate 110 2 puff inhalation BID asthma 05/07/21 Unknown History mcg/actuation HFA aerosol inhaler (Flovent HFA) levothyroxine 150 mcg tablet 150 mcg PO MO 05/07/21 05/22/21 History vit C 250 mg-vit E 90 mg-zinc 40 1 tab PO BID 05/07/21 Unknown History mg-copper 1 [id number] capsule (PreserVision AREDS-2) Allergy/AdvReac Type Severity Reaction Status Date / Time Sulfa (Sulfonamide Allergy Swelling Verified 02/16/24 19:52 Antibiotics) azithromycin (From Zithromax AdvReac Diarrhea Verified 02/16/24 19:52 Z-Riky) codeine AdvReac Vomiting Verified 02/16/24 19:52 Opioids - Morphine Analogues AdvReac NAUSEA/VOMI Verified 02/16/24 19:52 (narcotics) TING Penicillins AdvReac Other Verified 02/16/24 19:52 Surgical History History of cardiac catheterization Hx of varicose vein stripping Hx of left knee surgery Hx of tubal ligation Hx of hysterectomy, total Hx of inguinal hernia surgery Hx of bladder repair surgery History of total right knee replacement Social History Smoking Status: Never smoker ROS ROS ED Constitutional Constitutional ED: Denies chills, fever(s) or weight loss Eyes Eyes: Denies change in vision or diplopia ENT ENT ED: Reports other Details: Epistaxis ; Denies ear pain, rhinorrhea or sore throat Cardiovascular Cardiovascular: Denies chest pain, orthopnea, palpitations or racing heartbeat Respiratory/Chest Respiratory/Chest: Denies cough, dyspnea or orthopnea Gastrointestinal Gastrointestinal: Denies abdominal pain, diarrhea, nausea or vomiting Genitourinary Genitourinary ED: Denies dysuria, hematuria or urinary frequency Musculoskeletal Musculoskeletal: Denies arthralgias or myalgias Integumentary Denies abscess or rash Neurologic Neurologic: Denies headache(s) or weakness Psychiatric Psychiatric: Denies anxiety, depression, suicidal ideation or suicidal thoughts Endocrine Endocrinology: Denies polydipsia, polyphagia or polyuria Allergic/Immunologic Allergic/Immunologic ED: Denies mouth swelling, tongue swelling or urticaria EXAM Physical Exam Const Vital Signs: 02/16/24 19:50 02/16/24 20:22 02/16/24 22:00 Temperature 98.6 F Temperature Source Temporal Pulse Rate 88 78 Respiratory Rate 16 18 Blood Pressure 207/113 H 158/99 H 165/105 H Blood Pressure Mean 144 118 125 Pulse Ox 100 98 02/16/24 23:11 Temperature 98.6 F Temperature Source Pulse Rate 77 Respiratory Rate 16 Blood Pressure 164/101 H Blood Pressure Mean 122 Pulse Ox 98 Positive well nourished and well developed General Appearance ED: well developed HEENT Reports normocephalic, head/scalp atraumatic and moist mucous membranes HEENT Narrative: There is an apparent large arterial bleeding in the anterior plexus on the right naris. It appears to have some pulsatile bleeding. There were some initial clots that removed by the patient blowing. Eyes PERRL and EOMs intact bilaterally Neck no lymphadenopathy, supple and no JVD Resp normal respiratory effort and clear to auscultation bilaterally Cardio regular rate, regular rhythm and no murmurs GI normal to inspection, nondistended, normoactive bowel sounds and non-tender Palpation: soft Back/Spine no CVA tenderness and normal ROM Extremity normal to inspection General Extremety ED: Negative for edema General Extremity: Negative for edema Neuro oriented x3 and CN's II-XII intact bilaterally Sensorium / Orientation: alert Motor Exam: strength 5/5 throughout Psych mental status grossly normal Mood & Affect: Negative for depressed or tearful Skin no rashes or lesions noted and no wounds MDM MDM MDM Narrative Medical decision making narrative: Direct pressure using nasal pincers did not stop the bleeding. I placed Manny max on a cottonball placed that inside the naris and applied pincers. This also did not stop the bleeding. I then placed a anterior Rhino Rocket inflated with 2-1/2 cc of air. This appeared to stop the bleeding. Patient was advised that I recommend leaving this in place for approximately 3 days if she can tolerate it. I did recommend ENT follow-up. Syringe was given to the to use if it needs to be emergently removed. Patient was noted to be significantly hypertensive but has come down. She will continue to monitor. History & Record Review Discussion w/independent historian: Patient and Family Discharge Plan Triage Chief Complaint: Nosebleed ED Provider: Ludin Burns Dx/Rx/DC Orders Clinical Impression: Acute anterior epistaxis Instructions: ED Epistaxis (Adult) Prescriptions: No Action levothyroxine 175 MCG tablet 175 mcg PO SUTUWETHFRSA Patient Comments: thyroid carvedilol 12.5 MG tablet 12.5 mg PO BID Patient Comments: heart rate/ blood pressure lisinopril 20 MG tablet 20 mg PO QHS Patient Comments: blood pressure montelukast 10 MG tablet 10 mg PO QHS Patient Comments: allergies potassium chloride 10 MEQ tablet 20 meq PO DAILY Patient Comments: supplement multivitamin [Multiple Vitamins] 1 EACH tablet 1 tab PO DAILY amlodipine 5 MG tablet 2.5 mg PO DAILY biotin 1 MG tablet 1 mg PO DAILY L.acidoph, paracasei,B. lactis 1 EACH capsule 1 ea PO DAILY levothyroxine 150 mcg Tablet 150 mcg PO MO albuterol sulfate 90 mcg/actuation HFA aerosol inhaler 1 puff INHALATION PRN PRN (Reason: asthma) Patient Comments: inhale 2 puffs by mouth and INTO THE LUNGS every 4 hours if needed for wheezing SHORTNESS OF BREATH fluticasone propionate [Flovent HFA] 110 mcg/actuation HFA aerosol inhaler 2 puff INHALATION BID PreserVision AREDS-2 250-90-40-1 mg Capsule 1 tab PO BID Primary Care Provider: Shandra Bills Referrals: Manny Yanez MD [Med Staff - Active Staff] - (in 3 days) Shandra Bills MD [Primary Care Provider] - Activity Restrictions/Additional Instructions: If you are unable to see ENT on Thursday deflate the balloon and you may pull the packing yourself. If you have recurrent nosebleed return to emergency Print Language: Malaysian Disposition Disposition: Home, Self Care Discharge Date/Time: 02/16/24 23:14
== END 2024-02-16 23:14 | disposition home or self-care (01) ==
PROVIDERS: Emergency Provider Emergency Medicine; PCP Internal Medicine; Visit Provider Emergency Medicine
DX: R04.0 Epistaxis (principal); I10 Essential (primary) hypertension; E78.00 Pure hypercholesterolemia, unspecified; G47.30 Sleep apnea, unspecified; Z99.89 Dependence on other enabling machines and devices; Z79.899 Other long term (current) drug therapy; Z98.51 Tubal ligation status; Z90.710 Acquired absence of both cervix and uterus; Z96.651 Presence of right artificial knee joint
CPT/HCPCS: 30901; 99282

== ENCOUNTER 2024-05-16 11:10 | Emergency (ER) | payer MEDICARE, SELFPAY ==
[2024-05-16] VITALS (8 sets, daily range): BP systolic 133–189; BP diastolic 80–115; PULSE 67–87; RESP 16–18; TEMP 36.6; O2SAT 88–98; BMI 30.3
--- NOTE | 2024-05-16 11:29 | ED.VIS.CHEST ---
HPI History of Present Illness Chief Complaint: Chest Pain [facility] Medical History Wears glasses Rash Thyroid disease Arthritis Back pain Migraine headache History of IBS Gastric reflux Non-smoker CPAP (continuous positive airway pressure) dependence Sleep apnea Chronic cough History of pain when walking History of echocardiogram History of stress test Hypertension Cardiology follow-up encounter Hx of sebaceous cyst Hx of fracture of arm DDD (degenerative disc disease), lumbar Osteoarthritis IBS (irritable bowel syndrome) High triglycerides High cholesterol Chronic headaches Chronic bronchitis Environmental allergies Home Medications ?Medication ?Instructions ?Recorded ?Last Taken ?Type carvedilol 12.5 mg tablet 12.5 mg PO BID 10/11/15 05/22/21 History levothyroxine 175 mcg tablet 175 mcg PO SUTUWETHFRSA 10/11/15 Unknown History lisinopril 20 mg tablet 20 mg PO QHS 10/11/15 Unknown History montelukast 10 mg tablet 10 mg PO QHS 10/11/15 Unknown History potassium chloride 10 mEq 20 meq PO DAILY 10/11/15 Unknown History tablet,extended release(part/cryst) L.acidoph, paracasei,B. lactis 10 1 ea PO DAILY 02/04/17 Unknown History billion cell capsule amlodipine 5 mg tablet 2.5 mg PO DAILY 02/04/17 Unknown History biotin 1 mg tablet 1 mg PO DAILY 02/04/17 Unknown History multivitamin (Multiple Vitamins 1 tab PO DAILY 02/04/17 Unknown History tablet) albuterol sulfate 90 mcg/actuation 1 puff inhalation PRN PRN asthma 05/07/21 Unknown History aerosol inhaler fluticasone propionate 110 2 puff inhalation BID asthma 05/07/21 Unknown History mcg/actuation HFA aerosol inhaler (Flovent HFA) levothyroxine 150 mcg tablet 150 mcg PO MO 05/07/21 05/22/21 History vit C 250 mg-vit E 90 mg-zinc 40 1 tab PO BID 05/07/21 Unknown History mg-copper 1 [id number]-[id number] capsule (PreserVision AREDS-2) Allergy/AdvReac Type Severity Reaction Status Date / Time Sulfa (Sulfonamide Allergy Swelling Verified 05/16/24 11:12 Antibiotics) azithromycin (From Zithromax AdvReac Diarrhea Verified 05/16/24 11:12 Z-Riky) codeine AdvReac Vomiting Verified 05/16/24 11:12 Opioids - Morphine Analogues AdvReac NAUSEA/VOMI Verified 05/16/24 11:12 (narcotics) TING Penicillins AdvReac Other Verified 05/16/24 11:12 Surgical History History of cardiac catheterization Hx of varicose vein stripping Hx of left knee surgery Hx of tubal ligation Hx of hysterectomy, total Hx of inguinal hernia surgery Hx of bladder repair surgery History of total right knee replacement Social History Smoking Status: Never smoker EXAM Physical Exam Const Vital Signs: 05/16/24 11:10 05/16/24 11:26 05/16/24 11:38 Temperature 97.8 F Temperature Source Temporal Pulse Rate 77 Respiratory Rate 16 Respiratory Effort Normal Blood Pressure 186/115 H Blood Pressure Mean 138 Pulse Ox 98 Oxygen Delivery Method Room Air Room Air Oxygen Flow Rate (L/min) 05/16/24 12:10 05/16/24 12:33 05/16/24 13:00 Temperature Temperature Source Pulse Rate 73 67 Respiratory Rate 18 17 Respiratory Effort Blood Pressure 189/96 H 146/87 H 151/82 H Blood Pressure Mean 127 106 105 Pulse Ox 93 88 Oxygen Delivery Method Room Air Room Air Oxygen Flow Rate (L/min) 05/16/24 13:04 05/16/24 14:00 05/16/24 15:00 Temperature Temperature Source Pulse Rate 69 87 Respiratory Rate 16 16 Respiratory Effort Blood Pressure 134/80 H 133/89 H Blood Pressure Mean 98 103 Pulse Ox 94 96 96 Oxygen Delivery Method Nasal Cannula Room Air Room Air Oxygen Flow Rate (L/min) 2 MDM MDM MDM Narrative Medical decision making narrative: HISTORY OF PRESENT ILLNESS: 83-year-old female presents with concern for chest pain. Notes intermittent chest pain. No chest pain now. Notes his began left-sided midnight. She further states she had a spasm like pain in her left chest that came and went suddenly. Denies syncope. It is not there now. The patient denies recent surgery in the last 4 weeks or immobilization in the last 3 days, denies previous diagnosis of DVT or PE, hemoptysis, unilateral leg swelling or malignancy with treatment the last 6 months or palliative. No estrogen use noted. Patient denies sudden onset of pain, no tearing sensation, no migratory symptoms, no new numbness, weakness or loss of sensation. Patient denies family history or personal history of Connective tissue disorders (Marfan's Syndrome, Delonte Danlos etc) REVIEW OF SYSTEMS: Pertinent positives: Chest pain Pertinent negatives: Syncope, leg swelling, focal weakness PHYSICAL EXAM: Nursing triage notes reviewed, Vital signs reviewed Constitutional: please see mdm HENT: MMM Eyes: Pupils equal round and reactive to light, Extraocular muscles intact Neck: No stridor, no JVD, full neck ROM Lungs: Clear to auscultation, No wheezing or rales. No increased work of breathing, no conversational dyspnea, no accessory muscle use, no nasal flaring. No respiratory distress noted Heart: Regular rate and rhythm, No murmurs, No rubs and No gallops, 2+ distal pulses (radial, femoral, posterior tibial) in all extremities Abdomen: Soft, there is no tenderness, rigidity, rebound or guarding, no obvious peritoneal signs, no palpable pulsatile abdominal masses, no auscultated abdominal bruit : No CVAT Extremities: No edema Neuro: No focal neurological deficits, cranial nerves II through XII intact, 5/5 strength in all extremities. Intact sensation to light touch in all extremities, 2+ reflexes bilateral patella tendons. Normal gait. No ataxia. Skin: No rash or lesions noted MEDICAL DECISION MAKING: Chief Complaint: Chest pain External records reviewed: No recent echocardiograms, no recent cardiac catheterizations or stress test noted Factors affecting care: Hyperlipidemia, hypothyroidism, hypertension, EILEEN Social determinants of health: Elderly History obtained from others: none Consults: none [facility] Narrative: Patient was initially hypertensive with a blood pressure 186/115 otherwise afebrile and nontoxic-appearing. On exam patient was chest pain-free. Showed no focal pulm cardiopulmonary maladies. No stigmata VTE heart failure or dissection. I considered the following differential diagnosis: ACS, arrhythmia, anemia, electrolyte disturbance, pneumothorax, pericarditis, PE, aortic dissection I obtained a broad lab and imaging workup to further elucidate the etiology of patient complaints. Treat the patient initially with aspirin given mortality benefit as well as nitroglycerin given initial elevated blood pressure While considered pulmonary embolism thought this was less likely given the patient's lack of tachycardia, hypoxia, low risk Wells score. ALL IMAGES (IF OBTAINED) HAVE BEEN PERSONALLY REVIEWED AND INTERPRETED BY MYSELF. EKG with normal sinus rhythm, left axis deviation, normal intervals, no STEMI High-sensitivity troponin is negative, no evidence of myocardial ischemiax2 CBC without leukocytosis, severe anemia, no thrombocytopenia. BMP without evidence of significant electrolyte abnormalities, no anion gap, no acute kidney injury. I have personally reviewed the patient's chest x-ray. Chest x-ray is unremarkable for pulmonary edema, pneumothorax, pneumonia or focal cardiopulmonary abnormality. The synthesis of the patient's history, physical exam, labs images suggest no acute life-limiting etiology. Her symptoms are unexplained. I did notice her blood pressure is elevated and she told me she takes as needed labetalol. Gave her oral labetalol which improved her blood pressure to 134/80. Of note patient displayed transient hypoxia that was likely tachycardia and she was not sure hypoxia as patient no symptoms patient ambulated here without any severe hypoxia. She was discharged with a pulse ox of 90% on room air. Patient is appropriate discharge home with close PCP follow-up. The patient and/or family, caregivers express understanding. The patient and/or family, caregivers agrees with the plan. Shared decision making: I will have a discussion with the patient and or visitors regarding risk/benefits of further testing or admission. They will be made aware of of the risk/benefits inherent in this decision they will be given the opportunity to voice understanding. Total critical care time today provided was at least 0 minutes. This excludes separately billable procedures. Critical care time (if documented) is secondary to the patient having high probability of clinically significant/life threatening deterioration in the patient's condition which required my urgent intervention. Impression: 1. Chest pain 2. Elevated blood pressure 3. History of hypertension Dispo: Discharge home This note was generated with Medik[employer] dictation software. It may contain incorrect words, spelling, and punctuation that were not noted in review of the chart prior to signing. Lab Data Labs: Laboratory Results - last 24 hr 05/16/24 05/16/24 11:25 13:54 WBC 6.1 RBC 5.52 H Hgb 15.3 H Hct 48.1 H MCV 87.1 MCH 27.7 MCHC 31.8 L RDW Std Deviation 40.5 RDW Coeff of Collin 12.7 Plt Count 214 MPV 9.0 Immature Gran % (Auto) 0.500 Neut % (Auto) 60.1 Lymph % (Auto) 27.1 [place] % (Auto) 10.4 H Eos % (Auto) 1.6 Baso % (Auto) 0.3 Absolute Neuts (auto) 3.7 Absolute Lymphs (auto) 1.65 Nucleated RBC % 0 Sodium 138 Potassium 3.8 Chloride 100 Carbon Dioxide 35.0 H Anion Gap 3 L BUN 15 Creatinine 0.74 Estim Creat Clear Calc 60.70 Est GFR (MDRD) Af Amer 97 Est GFR (MDRD) Non-Af 80 BUN/Creatinine Ratio 20.4 H Glucose 95 Calcium 9.7 Troponin I High Sens 4 6 Radiography Diagnostic Testing: Clinical Impression(s) from Imaging Studies Chest X-Ray 05/16/24 11:38 IMPRESSION: Degenerative changes, as described above. No demonstrated acute cardiopulmonary process. Electronically Signed: Deangelo Braun MD at 12:38 EDT Reading Location ID and State: [address] [place] [address] , Service support , Discharge Plan Triage Chief Complaint: Chest Pain ED Provider: Florian Dudley Dx/Rx/DC Orders Clinical Impression: Hypertension, Chest pain Instructions: Chest Pain [facility] Prescriptions: No Action levothyroxine 175 MCG tablet 175 mcg PO SUTUWETHFRSA Patient Comments: thyroid carvedilol 12.5 MG tablet 12.5 mg PO BID Patient Comments: heart rate/ blood pressure lisinopril 20 MG tablet 20 mg PO QHS Patient Comments: blood pressure montelukast 10 MG tablet 10 mg PO QHS Patient Comments: allergies potassium chloride 10 MEQ tablet 20 meq PO DAILY Patient Comments: supplement multivitamin [Multiple Vitamins] 1 EACH tablet 1 tab PO DAILY amlodipine 5 MG tablet 2.5 mg PO DAILY biotin 1 MG tablet 1 mg PO DAILY L.acidoph, paracasei,B. lactis 1 EACH capsule 1 ea PO DAILY levothyroxine 150 mcg Tablet 150 mcg PO MO albuterol sulfate 90 mcg/actuation HFA aerosol inhaler 1 puff INHALATION PRN PRN (Reason: asthma) Patient Comments: inhale 2 puffs by mouth and INTO THE LUNGS every 4 hours if needed for wheezing SHORTNESS OF BREATH fluticasone propionate [Flovent HFA] 110 mcg/actuation HFA aerosol inhaler 2 puff INHALATION BID PreserVision AREDS-2 250-90-40-1 mg Capsule 1 tab PO BID Primary Care Provider: Shandra Bills Referrals: Shandra Bills MD [Primary Care Provider] - Activity Restrictions/Additional Instructions: Thank you for trusting us with your care today! Please take Tylenol (2 pills, 650 mg), ibuprofen (2 pills, 400 mg) every 6 hours as needed for pain and fever control. Please return to the emergency department if your symptoms change or worsen. Please follow with your primary care physician for further outpatient evaluation and management. Print Language: Kinyarwanda Disposition Disposition: Home, Self Care Discharge Date/Time: 05/16/24 15:09
--- NOTE | 2024-05-16 11:38 | EKG12_ITS ---
Test Reason : CP Blood Pressure : / mmHG Vent. Rate : 075 BPM Atrial Rate : 075 BPM P-R Int : 184 ms QRS Dur : 116 ms QT Int : 396 ms P-R-T Axes : 031 -64 037 degrees QTc Int : 442 ms Normal sinus rhythm Possible Left atrial enlargement Pulmonary disease pattern Left anterior fascicular block Left ventricular hypertrophy with QRS widening ( R in aVL , Kendrick product ) Abnormal ECG Confirmed by NIGHAT YEN, NEGRITO ([id number]), photographic editor BAN CALLAHAN ([id number]) on 05/19/2024 9:24:32 AM Referred By: BRIE/LEONID Confirmed By:NEGRITO DISLA MD
--- NOTE | 2024-05-16 11:38 | RAD_ITS ---
STUDY: X-RAY CHEST REASON FOR EXAM: Female, 83 years old. chest pain TECHNIQUE: Single AP portable view of the chest. COMPARISON: May 06, 2021 FINDINGS: The lungs are clear and expanded. There is no demonstrated pleural abnormality. There is mild cardiac enlargement. Normal mediastinum and dean. Normal visualized pulmonary arteries. There is atherosclerotic calcification of the aortic arch with tortuosity. There are diffuse degenerative changes of the visualized thoracic spine. Normal visualized ribs, clavicles, and shoulders. There is no demonstrated abnormality of the visualized soft tissue structures of the upper abdomen. RAD/Chest 1 View (Portable) IMPRESSION: Degenerative changes, as described above. No demonstrated acute cardiopulmonary process. Electronically Signed: Deangelo Braun MD at 12:38 EDT ,
[2024-05-16 11:47] LABS: Absolute Lymphocyte Count 1.65 X10^3/uL (0.83-4.51); Absolute Neutrophil Count 3.7 X10^3/uL (2.0-7.7); Basophil# 0.02 X10^3/uL; Basophil% 0.3 % (0-1); Eosinophils% 1.6 % (0-5); Hematocrit 48.1 % (37-47); Hemoglobin 15.3 g/dL (12.0-15.0); Lymphocyte # 1.65 X10^3/ul (0.83-4.51); Lymphocyte % 27.1 % (19-41); Mean Corp Hgb Conc 31.8 g/dL (32-36); Mean Corpuscular Hgb 27.7 pg (27.0-32.0); Mean Corpuscular Volume 87.1 fL (81-99); Monocyte# 0.63 X10^3/uL; Monocyte% 10.4 % (0-10); NRBC Flagged by Analyzer 0 % (0-5); Neutrophil # 3.65 X10^3/uL (2.7-7.7); Neutrophil % 60.1 % (47-70); Platelet Count 214 K/mm3 (150-450); RBC Distribution Width CV 12.7 % (11.6-14.6); RBC Distribution Width SD 40.5 fl (35.1-43.9); Red Blood Count 5.52 M/mm3 (4.2-5.4); White Blood Count 6.1 K/mm3 (4.4-11.0)
[2024-05-16] MEDS: Aspirin 81 MG TAB.CHEW 324 MG PO (11:50)
[2024-05-16 12:03] LABS: Anion Gap 3 (5-15); BUN 15 mg/dL (7-18); BUN/Creat Ratio 20.4 RATIO (10-20); Calcium,Total 9.7 mg/dL (8.5-10.1); Chloride 100 mmol/L (98-107); Creatinine, Serum 0.74 mg/dL (0.55-1.02); EST Glomerular Filtration Rate 80 mL/min (>60); Est Glom Filt Rate - Afr Amer 97 mL/min (>60); Glucose 95 mg/dL (74-106); Potassium 3.8 mmol/L (3.5-5.1); Sodium Level 138 mmol/L (136-145); Troponin-I HS (w/2H Reflex) 4 pg/mL (3.0-54.0)
[2024-05-16] MEDS: Labetalol 100 MG Tablet PO (12:28)
[2024-05-16 13:44] LABS: Reflex Troponin-HS? (from REC) Y
[2024-05-16 14:17] LABS: Troponin-I HS 6 pg/mL (3.0-54.0)
== END 2024-05-16 15:09 | disposition home or self-care (01) ==
PROVIDERS: Emergency Provider Emergency Medicine; PCP Internal Medicine; Visit Provider Emergency Medicine
DX: R07.9 Chest pain, unspecified (principal); E78.00 Pure hypercholesterolemia, unspecified; I10 Essential (primary) hypertension; G47.33 Obstructive sleep apnea (adult) (pediatric); E03.9 Hypothyroidism, unspecified; Z99.89 Dependence on other enabling machines and devices; Z79.899 Other long term (current) drug therapy; Z79.51 Long term (current) use of inhaled steroids; Z98.51 Tubal ligation status; Z90.710 Acquired absence of both cervix and uterus; Z96.651 Presence of right artificial knee joint
CPT/HCPCS: 71045; 80048; 84484; 85025; 93005; 99283; A4216

== ENCOUNTER 2024-11-02 14:33 | Inpatient (IN) | payer MEDICARE, SELFPAY ==
[2024-11-02] VITALS (13 sets, daily range): BP systolic 135–174; BP diastolic 79–98; PULSE 80–94; RESP 14–24; TEMP 36.6–37.2; O2SAT 93–98; BMI 31.1; BMI 29.4
--- NOTE | 2024-11-02 14:35 | RAD_ITS ---
PROCEDURE: CHEST PA AND LATERAL REASON FOR EXAM: Shortness of breath. TECHNIQUE: Frontal and lateral views of the chest. COMPARISON: 05/16/2024 FINDINGS: The heart size is normal. The mediastinal contour is unremarkable. No acute consolidation, pleural effusion or pneumothorax. The bones are unremarkable. RAD/Chest PA and Lateral IMPRESSION: No acute consolidation, pleural effusion or pneumothorax. Reading Location: [id number]
--- NOTE | 2024-11-02 14:36 | EKG12_ITS ---
Test Reason : Blood Pressure : */* mmHG Vent. Rate : 89 BPM Atrial Rate : 89 BPM P-R Int : 150 ms QRS Dur : 122 ms QT Int : 392 ms P-R-T Axes : 17 -60 -5 degrees QTcB Int : 476 ms Sinus rhythm with frequent Premature ventricular complexes Left anterior fascicular block Left ventricular hypertrophy with QRS widening POOR R WAVE PROGRESISON Abnormal ECG Confirmed by Gilberto Fraser ([id number]), restaurant expeditor BAN CALLAHAN ([id number]) on 11/03/2024 9:37:44 AM Referred By: [place]/AR/TB Confirmed By: Gilberto Fraser
[2024-11-02 14:52] LABS: Absolute Lymphocyte Count 1.48 X10^3/uL (0.83-4.51); Absolute Neutrophil Count 2.7 X10^3/uL (2.0-7.7); Basophil# 0.01 X10^3/uL; Basophil% 0.2 % (0-1); Hematocrit 44.6 % (37-47); Hemoglobin 14.5 g/dL (12.0-15.0); Lymphocyte # 1.48 X10^3/ul (0.83-4.51); Lymphocyte % 28.8 % (19-41); Mean Corp Hgb Conc 32.5 g/dL (32-36); Mean Corpuscular Hgb 28.8 pg (27.0-32.0); Mean Corpuscular Volume 88.7 fL (81-99); Mean Platelet Vol. 9.2 fl (6.2-12.0); Monocyte# 0.96 X10^3/uL; Monocyte% 18.7 % (0-10); NRBC Flagged by Analyzer 0 % (0-5); Neutrophil # 2.67 X10^3/uL (2.7-7.7); Neutrophil % 51.9 % (47-70); Platelet Count 132 K/mm3 (150-450); RBC Distribution Width CV 13.2 % (11.6-14.6); RBC Distribution Width SD 42.7 fl (35.1-43.9); Red Blood Count 5.03 M/mm3 (4.2-5.4); White Blood Count 5.1 K/mm3 (4.4-11.0)
--- NOTE | 2024-11-02 15:29 | ED.VIS.DYS ---
HPI History of Present Illness Chief Complaint: Shortness of Breath Narrative Narrative: Chief complaint and HPI: Acute hypoxia and flulike symptoms. 84-year-old female with past medical history of HTN, hypothyroidism, HLD, asthma, EILEEN on CPAP presents for evaluation of acute hypoxia and flulike symptoms. Onset of symptoms Thursday. Patient endorses fever, body aches, head congestion, and productive cough. Patient states she has had increased wheezing. She has been taking her maintenance inhaler as well as her montelukast and albuterol. She does not have nebulizers. Patient denies any chest pain or shortness of breath. She states that her productive cough has worsened which is why she presented to an urgent care and she was found to be hypoxic 88% on room air. Placed on 2 L nasal cannula and sent over to the emergency department. Patient endorses decreased p.o. intake. Denies any abdominal pain, nausea, vomiting. Review of systems: See HPI Medications: As listed on the chart Allergies: As listed on the chart PFSH: Per chart Vital signs: As listed on the chart. Reviewed. Physical exam: Gen: A&O x3, NAD Head: Normocephalic, atraumatic Eyes: No sclera icterus, conjunctiva clear ENT: Mildly dry mucous membranes, + nasal congestion Neck: Trachea midline, No JVD CV: RRR, no murmurs, no peripheral edema Resp: Lungs mildly coarse, expiratory wheezing diffuse, tight airflow, on 2 L nasal cannula GI: Abd soft, non-distended, non-tender, no r/r/g Musc: Full ROM, no deformity Skin: Warm, dry Neuro: Alert, oriented, grossly intact, sensation intact Psych: Cooperative, appropriate mood and affect [facility] Medical History (Updated 11/02/24 @ 20:54 by Christie Simmons) Wears glasses Rash Thyroid disease Arthritis Back pain Migraine headache History of IBS Gastric reflux Non-smoker CPAP (continuous positive airway pressure) dependence Sleep apnea Chronic cough History of pain when walking History of echocardiogram History of stress test Hypertension Cardiology follow-up encounter Hx of sebaceous cyst Hx of fracture of arm DDD (degenerative disc disease), lumbar Osteoarthritis IBS (irritable bowel syndrome) High triglycerides High cholesterol Chronic headaches Chronic bronchitis Environmental allergies Home Medications ?Medication ?Instructions ?Recorded ?Last Taken ?Type carvedilol 12.5 mg tablet 12.5 mg PO BID 10/11/15 11/01/24 History levothyroxine 175 mcg tablet 175 mcg PO SUTUWETHFRSA 10/11/15 11/01/24 History lisinopril 20 mg tablet 20 mg PO QHS 10/11/15 11/01/24 History montelukast 10 mg tablet 10 mg PO QHS 10/11/15 11/01/24 History potassium chloride 10 mEq 20 meq PO DAILY 10/11/15 11/01/24 History tablet,extended release(part/cryst) L.acidoph,paracasei,B.animalis 10 1 ea PO DAILY 02/04/17 11/01/24 History billion cell capsule amlodipine 5 mg tablet 5 mg PO DAILY 02/04/17 11/01/24 History albuterol sulfate 90 mcg/actuation 1 puff inhalation PRN PRN asthma 05/07/21 11/01/24 History aerosol inhaler fluticasone propionate 110 2 puff inhalation BID asthma 05/07/21 11/01/24 History mcg/actuation HFA aerosol inhaler (Flovent HFA) levothyroxine 150 mcg tablet 150 mcg PO MO 05/07/21 11/01/24 History vit C 250 mg-vit E 90 mg-zinc 40 1 tab PO BID 05/07/21 11/01/24 History mg-copper 1 qk-bfoefq-scnwht capsule (PreserVision AREDS-2) aspirin 81 mg tablet,delayed 81 mg PO DAILY 11/02/24 11/01/24 History release pravastatin 40 mg tablet 40 mg PO DAILY 11/02/24 11/01/24 History vibegron 75 mg tablet (Gemtesa) 75 mg PO DAILY 11/02/24 11/01/24 History Allergy/AdvReac Type Severity Reaction Status Date / Time Sulfa (Sulfonamide Allergy Swelling Verified 11/02/24 14:38 Antibiotics) azithromycin (From Zithromax AdvReac Diarrhea Verified 11/02/24 14:38 Z-Riky) codeine AdvReac Vomiting Verified 11/02/24 14:38 Opioids - Morphine Analogues AdvReac NAUSEA/VOMI Verified 11/02/24 14:38 (narcotics) TING Penicillins AdvReac Other Verified 11/02/24 14:38 Surgical History (Updated 11/02/24 @ 20:54 by Christie Simmons) History of appendectomy History of cardiac catheterization Hx of varicose vein stripping Hx of left knee surgery Hx of tubal ligation Hx of hysterectomy, total Hx of inguinal hernia surgery Hx of bladder repair surgery History of total right knee replacement Social History Smoking Status: Never smoker EXAM Physical Exam Const Vital Signs: 11/02/24 14:33 11/02/24 15:17 11/02/24 15:17 Temperature 98.5 F Temperature Source Temporal Pulse Rate 93 Respiratory Rate 22 H 14 Respiratory Effort Respiratory Depth Respiratory Pattern Blood Pressure 135/89 H Blood Pressure Mean 104 Pulse Ox 95 97 Oxygen Delivery Method Nasal Cannula Room Air Room Air Oxygen Flow Rate (L/min) 2 11/02/24 15:19 11/02/24 15:38 11/02/24 15:38 Temperature Temperature Source Pulse Rate 90 Respiratory Rate 18 20 H Respiratory Effort Normal Normal Respiratory Depth Normal Respiratory Pattern Normal Normal Blood Pressure Blood Pressure Mean Pulse Ox 95 Oxygen Delivery Method Nasal Cannula Oxygen Flow Rate (L/min) 2 11/02/24 15:38 11/02/24 15:38 11/02/24 15:38 Temperature 98 F Temperature Source Oral Pulse Rate 90 90 Respiratory Rate 20 H 18 Respiratory Effort Respiratory Depth Respiratory Pattern Blood Pressure 152/86 H 152/86 H Blood Pressure Mean 108 108 Pulse Ox 94 94 Oxygen Delivery Method Nasal Cannula Room Air Room Air Oxygen Flow Rate (L/min) 11/02/24 16:00 11/02/24 16:00 11/02/24 17:00 Temperature 98 F 98 F Temperature Source Oral Oral Pulse Rate 81 84 81 Respiratory Rate 18 18 18 Respiratory Effort Respiratory Depth Respiratory Pattern Blood Pressure 140/84 H 140/84 H 172/94 H Blood Pressure Mean 102 102 120 Pulse Ox 94 93 96 Oxygen Delivery Method Nasal Cannula Nasal Cannula Nasal Cannula Oxygen Flow Rate (L/min) 11/02/24 17:19 11/02/24 18:00 Temperature 98 F 98 F Temperature Source Oral Pulse Rate 81 80 Respiratory Rate 16 18 Respiratory Effort Respiratory Depth Respiratory Pattern Blood Pressure 172/94 H 174/96 H Blood Pressure Mean 120 122 Pulse Ox 96 96 Oxygen Delivery Method Nasal Cannula Oxygen Flow Rate (L/min) MDM MDM MDM Narrative Medical decision making narrative: 84-year-old female with past medical history of HTN, hypothyroidism, HLD, asthma, EILEEN on CPAP presents for evaluation of acute hypoxia and flulike symptoms. Differential diagnosis includes but is not limited to asthma exacerbation, viral illness, influenza, COVID, pneumonia, electrolyte abnormality. NS bolus, Solu-Medrol, DuoNeb, albuterol ordered for symptoms. Respiratory workup ordered. EKG and chest x-ray reviewed see below. CBC without leukocytosis or anemia. Patient has new thrombocytopenia. BMP relatively unremarkable. Troponin unremarkable. Patient positive for influenza A. Patient's symptoms are likely secondary to an asthma exacerbation secondary to influenza A. She is requiring oxygen and therefore require admission. Tamiflu ordered. Patient is updated on the results and confirmed understand the plan. Patient was discussed with the hospitalist service and admitted. EKG: Interpreted by me/EM physician: EKG shows sinus rhythm with frequent PVCs. Known left anterior fascicular block. Patient has T wave depressions in lead III and aVF that are new from previous EKG in May 2024. Diagnostic: Interpreted by me/EM physician: Chest x-ray without pneumonia, effusion, cardiomegaly, pneumothorax Impression: 1. Acute hypoxia requiring oxygen via nasal cannula 2. Asthma exacerbation 3. Influenza A Lab Data Labs: Laboratory Results - last 24 hr 11/02/24 11/02/24 14:42 17:25 WBC 5.1 RBC 5.03 Hgb 14.5 Hct 44.6 MCV 88.7 MCH 28.8 MCHC 32.5 RDW Std Deviation 42.7 RDW Coeff of Collin 13.2 Plt Count 132 L MPV 9.2 Immature Gran % (Auto) 0.400 Neut % (Auto) 51.9 Lymph % (Auto) 28.8 [place] % (Auto) 18.7 H Eos % (Auto) 0.0 Baso % (Auto) 0.2 Absolute Neuts (auto) 2.7 Absolute Lymphs (auto) 1.48 Nucleated RBC % 0 Sodium 135 Potassium 3.4 Chloride Direct 96 Carbon Dioxide 28.3 Anion Gap 11 BUN 18 Creatinine 0.8 Est GFR (MDRD) Non-Af 75 BUN/Creatinine Ratio 22.9 H Glucose 88 Calcium 8.7 Troponin T High Sens 14 Troponin T Hi Sens 2 Hr 10 Troponin T Hi Sens 2Hr Delta 4 Radiography Diagnostic Testing: Clinical Impression(s) from Imaging Studies Chest X-Ray 11/02/24 14:35 IMPRESSION: No acute consolidation, pleural effusion or pneumothorax. Reading Location: [facility] Discharge Plan Disposition Disposition: Acute Care Hospital [facility] Discharge Date/Time: 11/02/24 20:23
[2024-11-02] MEDS: Ipratropium/Albuterol Sulfate 3 ML AMPUL.NEB INHALATION ×2 (15:35→21:22)
[2024-11-02] MEDS: Albuterol 2.5 MG/3 ML VIAL.NEB. 5 MG INHALATION (15:36)
[2024-11-02] MEDS: MethylPREDNISolone 125 MG/2 ML Vial IV (15:48)
[2024-11-02 15:51] LABS: Anion Gap 11 (5-15); BUN 18 mg/dL (4-19); BUN/Creat Ratio 22.9 RATIO (10-20); Calcium 8.7 mg/dL (7.6-11.0); Carbon Dioxide 28.3 mmol/L (22.0-29.0); Chloride 96 mmol/L (96-108); Creatinine, Serum 0.8 mg/dL (0.6-1.0); EST Glomerular Filtration Rate 75 (>60); Glucose 88 mg/dL (70-99); Potassium 3.4 mmol/L (3.3-5.1); Sodium Level 135 mmol/L (133-145)
[2024-11-02] MEDS: 0.9% Normal Saline (1000mL) 1,000 ML 999 ML IV (16:34)
[2024-11-02 16:49] LABS: Troponin T High Sensitivity 14 ng/L (<=14)
[2024-11-02] MEDS: Oseltamivir Phosphate 75 MG Capsule PO (17:09)
[2024-11-02 18:00] LABS: TROPONIN VARIANCE 2 HR 4; Troponin T High Sens 2 HR 10 ng/L (<=14)
--- NOTE | 2024-11-02 18:16 | ED.RN ---
[address] cancelled per Dr Gao.
--- NOTE | 2024-11-02 18:16 | PCM.HP.STD ---
[facility] - General General Date of Service: 11/02/24 Chief Complaint: Weakness and shortness of breath. [facility] Narrative MÓNICA OVIEDO, is a 84 F who presents with weakness, myalgias, arthralgias, chills, shortness of breath this been ongoing for 3 days. Presented to the emergency room because she just felt so terrible. Positive for influenza A. Patient was noted to be hypoxic and did require oxygen. Patient has a history of asthma and did receive bronchodilators and methylprednisolone. Patient did get influenza vaccine this year. Patient states that her is also sick at home [facility] Medical History Wears glasses Rash Thyroid disease Arthritis Back pain Migraine headache History of IBS Gastric reflux Non-smoker CPAP (continuous positive airway pressure) dependence Sleep apnea Chronic cough History of pain when walking History of echocardiogram History of stress test Hypertension Cardiology follow-up encounter Hx of sebaceous cyst Hx of fracture of arm DDD (degenerative disc disease), lumbar Osteoarthritis IBS (irritable bowel syndrome) High triglycerides High cholesterol Chronic headaches Chronic bronchitis Environmental allergies Home Medications ?Medication ?Instructions ?Recorded ?Last Taken ?Type carvedilol 12.5 mg tablet 12.5 mg PO BID 10/11/15 11/01/24 History levothyroxine 175 mcg tablet 175 mcg PO SUTUWETHFRSA 10/11/15 11/01/24 History lisinopril 20 mg tablet 20 mg PO QHS 10/11/15 11/01/24 History montelukast 10 mg tablet 10 mg PO QHS 10/11/15 11/01/24 History potassium chloride 10 mEq 20 meq PO DAILY 10/11/15 11/01/24 History tablet,extended release(part/cryst) L.acidoph,paracasei,B.animalis 10 1 ea PO DAILY 02/04/17 11/01/24 History billion cell capsule amlodipine 5 mg tablet 5 mg PO DAILY 02/04/17 11/01/24 History albuterol sulfate 90 mcg/actuation 1 puff inhalation PRN PRN asthma 05/07/21 11/01/24 History aerosol inhaler fluticasone propionate 110 2 puff inhalation BID asthma 05/07/21 11/01/24 History mcg/actuation HFA aerosol inhaler (Flovent HFA) levothyroxine 150 mcg tablet 150 mcg PO MO 05/07/21 11/01/24 History vit C 250 mg-vit E 90 mg-zinc 40 1 tab PO BID 05/07/21 11/01/24 History mg-copper 1 [id number]-tnptwp capsule (PreserVision AREDS-2) aspirin 81 mg tablet,delayed 81 mg PO DAILY 11/02/24 11/01/24 History release pravastatin 40 mg tablet 40 mg PO DAILY 11/02/24 11/01/24 History trimethoprim 100 mg tablet 100 mg PO QHS 11/02/24 11/01/24 History vibegron 75 mg tablet (Gemtesa) 75 mg PO DAILY 11/02/24 11/01/24 History Allergy/AdvReac Type Severity Reaction Status Date / Time Sulfa (Sulfonamide Allergy Swelling Verified 11/02/24 14:38 Antibiotics) azithromycin (From Zithromax AdvReac Diarrhea Verified 11/02/24 14:38 Z-Riky) codeine AdvReac Vomiting Verified 11/02/24 14:38 Opioids - Morphine Analogues AdvReac NAUSEA/VOMI Verified 11/02/24 14:38 (narcotics) TING Penicillins AdvReac Other Verified 11/02/24 14:38 Surgical History History of cardiac catheterization Hx of varicose vein stripping Hx of left knee surgery Hx of tubal ligation Hx of hysterectomy, total Hx of inguinal hernia surgery Hx of bladder repair surgery History of total right knee replacement Social History Smoking Status: Never smoker ROS ROS Narrative All review of systems were negative except as mentioned above in the history of present illness and the other review of systems. Vital Signs Vital Signs Vital Signs: 11/02/24 14:33 11/02/24 15:17 11/02/24 15:17 Temperature 36.9 C Temperature Source Temporal Pulse Rate 93 Respiratory Rate 22 H 14 Respiratory Effort Respiratory Depth Respiratory Pattern Blood Pressure 135/89 H Blood Pressure Mean 104 Pulse Ox 95 97 Oxygen Delivery Method Nasal Cannula Room Air Room Air Oxygen Flow Rate (L/min) 2 11/02/24 15:19 11/02/24 15:38 11/02/24 15:38 Temperature Temperature Source Pulse Rate 90 Respiratory Rate 18 20 H Respiratory Effort Normal Normal Respiratory Depth Normal Respiratory Pattern Normal Normal Blood Pressure Blood Pressure Mean Pulse Ox 95 Oxygen Delivery Method Nasal Cannula Oxygen Flow Rate (L/min) 2 11/02/24 15:38 11/02/24 15:38 11/02/24 15:38 Temperature 36.6 C Temperature Source Oral Pulse Rate 90 90 Respiratory Rate 20 H 18 Respiratory Effort Respiratory Depth Respiratory Pattern Blood Pressure 152/86 H 152/86 H Blood Pressure Mean 108 108 Pulse Ox 94 94 Oxygen Delivery Method Nasal Cannula Room Air Room Air Oxygen Flow Rate (L/min) 11/02/24 16:00 11/02/24 16:00 11/02/24 17:00 Temperature 36.6 C 36.6 C Temperature Source Oral Oral Pulse Rate 81 84 81 Respiratory Rate 18 18 18 Respiratory Effort Respiratory Depth Respiratory Pattern Blood Pressure 140/84 H 140/84 H 172/94 H Blood Pressure Mean 102 102 120 Pulse Ox 94 93 96 Oxygen Delivery Method Nasal Cannula Nasal Cannula Nasal Cannula Oxygen Flow Rate (L/min) 11/02/24 17:19 11/02/24 18:00 Temperature 36.6 C 36.6 C Temperature Source Oral Pulse Rate 81 80 Respiratory Rate 16 18 Respiratory Effort Respiratory Depth Respiratory Pattern Blood Pressure 172/94 H 174/96 H Blood Pressure Mean 120 122 Pulse Ox 96 96 Oxygen Delivery Method Nasal Cannula Oxygen Flow Rate (L/min) Physical Exam Narrative - Physical Exam General: Alert, Oriented x3, Cooperative HEENT: Atraumatic, PERRLA, EOMI, Normocephalic Oral: Moist Mucosa, No Gingival or Mucosal Lesions/ Ulcerations Neck: Supple, No JVD, Negative Carotid Bruits Lungs: Few scattered wheezes throughout. Cardiovascular: Regular rate, Normal S1, Normal S2, No murmurs Abdomen: Bowel Sounds Present, Soft, Non Tender, Non-Distended, No Hepato-splenomegaly Extremities: No clubbing, No cyanosis, No edema Skin: No rashes, No breakdown Musculoskeletal: No Tenderness to Palpation of Joints or Extremities Neurological: Moves all extremities. Psych/Mental Status: Normal Affect, Appropriate Results Lab / Micro Data Attestation: I reviewed the patient's lab results. 11/02/24 14:42 11/02/24 14:42 Labs: Laboratory Results - last 24 hr 11/02/24 14:42: WBC 5.1, RBC 5.03, Hgb 14.5, Hct 44.6, MCV 88.7, MCH 28.8, MCHC 32.5, RDW Std Deviation 42.7, RDW Coeff of Collin 13.2, Plt Count 132 L, MPV 9.2, Immature Gran % (Auto) 0.400, Neut % (Auto) 51.9, Lymph % (Auto) 28.8, [place] % (Auto) 18.7 H, Eos % (Auto) 0.0, Baso % (Auto) 0.2, Absolute Neuts (auto) 2.7, Absolute Lymphs (auto) 1.48, Nucleated RBC % 0, Sodium 135, Potassium 3.4, Chloride Direct 96, Carbon Dioxide 28.3, Anion Gap 11, BUN 18, Creatinine 0.8, Est GFR (MDRD) Non-Af 75, BUN/Creatinine Ratio 22.9 H, Glucose 88, Calcium 8.7, Troponin T High Sens 14 11/02/24 17:25: Troponin T Hi Sens 2 Hr 10, Troponin T Hi Sens 2Hr Delta 4 Micro: Microbiology 11/02/24 15:41 Mucosa - Nose SARS-CoV-2, Influenza & RSV (PCR) - Final Influenzae A Imaging Radiology Impression Chest X-Ray 11/02/24 14:35 IMPRESSION: No acute consolidation, pleural effusion or pneumothorax. Reading Location: [facility] Assessment & Plan Assessment/Plan (1) Influenza A: PLAN: Symptoms began about 3 days prior to arrival to progressively gotten worse. Patient is previously vaccinated for influenza this season. Continue with Tamiflu. Patient received a dose in the emergency room. (2) Acute asthma exacerbation: PLAN: Secondary to underlying influenza and patient did require oxygen. Continue with bronchodilators and methylprednisolone. Patient states that when she was 7 years old she was diagnosed with pneumonitis and was bedbound for 9 months due to that. She said that she received penicillin but is unclear if that actually helped that. It is unclear if that was a viral infection but if she has some chronic changes related with that pneumonitis. PLAN: Plan Chronic conditions Hypertension: Continue with amlodipine, carvedilol and lisinopril Hypothyroidism continue with levothyroxine Chronic hypokalemia: Continue with potassium chloride. Monitor. VTE prophylaxis with enoxaparin CODE STATUS: Addressed with patient. Patient wished to be DNR Comfort Care arrest. She is okay with short-term intubation. Charges/Coding Visit Charges Inpatient E&M: 00096 Init Hosp L2
--- NOTE | 2024-11-02 20:01 | CASEMGMT ---
Care Management Face to Face with patient for initial transition planning/care coordination assessment in the ED.? This telegraphic typewriter operator chief introduced self and role at [facility]. Patient alert and oriented. Patient willing to participate in assessment and is able to answer all questions appropriately.? Care providers, pharmacy, and demographics verified. Admitting Diagnosis: weakness and shortness of breath Other diagnosis history: ?IBS, DDD, sleep apnea, arthritis PCP: joselyn Specialists: ?Liyah ? Neurology, a sheet rock finisher, a urologist Preferred Pharmacy: ?[facility] Insurance: ?[place] Prescription Benefit: yes Living Will/HPOA: ?HPOA on file LNOK: Living Arrangements: Lives with in 3 story home, they occupy 2 stories.? Independent with ADLS and IADLs Transportation: patient drives DME: walker, cane, bedside commode, rollator, wheelchair, grab bars, CPAP with [employer] HHC: none SNF/Rehab: none Community Resources: ?none Behavioral Health History: none Patient goals: Patient wishes to discharge home. Patient denies any further needs or concerns at this time. Disposition Plan: admission to acute; RN CM/SW to follow for discharge planning needs that may arise. Kizzy Gomez, ENGRAVING PATTERNMAKER, ROUTER OPERATOR RADIAL
--- NOTE | 2024-11-02 22:00 | CPS ---
discussed hospital cpap machine-pt doesn't know setting of home unit-declined hospitals will bring own unit in tomorrow-is fine on 3 l/m as at home
[2024-11-02] MEDS: Multivitamin (Healthy Eyes) Capsule 1 CAP PO (22:21)
[2024-11-02] MEDS: Pravastatin 40 MG Tablet PO (22:21)
[2024-11-02] MEDS: Montelukast 10 MG Tablet PO (22:21)
[2024-11-02] MEDS: Lisinopril 20 MG Tablet PO (22:22)
[2024-11-02] MEDS: 0.9% Saline Lock 10 ML Syringe IV (22:22)
[2024-11-02] MEDS: Carvedilol 12.5 MG Tablet PO (22:31)
[2024-11-03] VITALS (8 sets, daily range): BP systolic 116–143; BP diastolic 68–76; PULSE 71–80; RESP 12–18; TEMP 36.6–37.3; O2SAT 70–98
[2024-11-03] MEDS: 0.9% Saline Lock 10 ML Syringe IV ×2 (05:44→13:57)
[2024-11-03] MEDS: Levothyroxine 175 MCG Tablet PO (05:44)
[2024-11-03 06:22] LABS: Absolute Neutrophil Count 2.1 X10^3/uL (2.0-7.7); Hematocrit 47.1 % (37-47); Hemoglobin 15.4 g/dL (12.0-15.0); Lymphocyte % 26.7 % (19-41); Mean Corp Hgb Conc 32.7 g/dL (32-36); Mean Corpuscular Hgb 28.3 pg (27.0-32.0); Mean Corpuscular Volume 86.4 fL (81-99); Mean Platelet Vol. 9.7 fl (6.2-12.0); Monocyte# 0.11 X10^3/uL; Monocyte% 3.7 % (0-10); NRBC Flagged by Analyzer 0 % (0-5); Neutrophil # 2.07 X10^3/uL (2.7-7.7); Neutrophil % 68.9 % (47-70); Platelet Count 150 K/mm3 (150-450); RBC Distribution Width CV 12.5 % (11.6-14.6); RBC Distribution Width SD 39.8 fl (35.1-43.9); Red Blood Count 5.45 M/mm3 (4.2-5.4)
[2024-11-03] MEDS: Ipratropium/Albuterol Sulfate 3 ML AMPUL.NEB INHALATION ×2 (07:44→12:40)
[2024-11-03] MEDS: Potassium Chloride Oral Tablet 20 MEQ PO (09:02)
[2024-11-03] MEDS: Oseltamivir Phosphate 30 MG Capsule PO (09:02)
[2024-11-03] MEDS: amLODIPine 5 MG Tablet PO (09:02)
[2024-11-03] MEDS: Aspirin E.C. 81 MG Tablet PO (09:03)
[2024-11-03] MEDS: Multivitamin (Healthy Eyes) Capsule 1 CAP PO (09:03)
[2024-11-03] MEDS: Carvedilol 12.5 MG Tablet PO (09:03)
[2024-11-03] MEDS: Vibegron 75 MG TABLET PO (09:04)
[2024-11-03] MEDS: Enoxaparin 40 MG/0.4 ML Syringe SC (09:05)
[2024-11-03 10:32] LABS: BUN 18 mg/dL (4-19); BUN/Creat Ratio 30.8 RATIO (10-20); Calcium 8.8 mg/dL (7.6-11.0); Carbon Dioxide 24.3 mmol/L (22.0-29.0); Creatinine, Serum 0.6 mg/dL (0.6-1.0); EST Glomerular Filtration Rate 90 (>60); Estimated Creatinine Clearance 58.73 ml/min; Glucose 152 mg/dL (70-99)
[2024-11-03 10:41] LABS: Anion Gap 16 (5-15); Chloride 98 mmol/L (96-108); Potassium 3.7 mmol/L (3.3-5.1); Sodium Level 138 mmol/L (133-145)
--- NOTE | 2024-11-03 11:28 | PCM.DC ---
Discharge Instructions Diet Discharge Diet: Low fat / Low cholesterol DC O2, CPAP, BIPAP needs Home O2 Discharge instructions: No Dressing / Incision Discharge Activity: Return to Normal Activity Dressing / Incision Call your doctor if you observe: Fever of 101 or Higher, Shortness of breath, Dizziness, Fainting spells, Swelling in the ankles, Chest pain and Increased palpitations (irregular heartbeat) Follow Up Care Test Results: Test results from this visit will be discussed in further detail at your follow-up appointment, if applicable. Discharge Plan Admission Admit Date/Time: 11/02/24 18:11 Attending Provider: Gregorio Contreras Primary Care Provider: Shandra Bills Consulting Providers: Gamaliel Upton Discharge Orders/Prescriptions Prescriptions: New oseltamivir 30 mg Capsule 30 mg PO BID 5 Days Qty: 10 0RF prednisone 20 mg tablet 40 mg PO DAILY 7 Days Qty: 14 0RF Continued levothyroxine 175 MCG tablet 175 mcg PO SUTUWETHFRSA Patient Comments: thyroid carvedilol 12.5 MG tablet 12.5 mg PO BID Patient Comments: heart rate/ blood pressure lisinopril 20 MG tablet 20 mg PO QHS Patient Comments: blood pressure montelukast 10 MG tablet 10 mg PO QHS Patient Comments: allergies potassium chloride 10 MEQ tablet 20 meq PO DAILY Patient Comments: supplement amlodipine 5 MG tablet 5 mg PO DAILY shan Braun B.animalis 1 EACH capsule 1 ea PO DAILY levothyroxine 150 mcg Tablet 150 mcg PO MO albuterol sulfate 90 mcg/actuation HFA aerosol inhaler 1 puff INHALATION PRN PRN (Reason: asthma) Patient Comments: inhale 2 puffs by mouth and INTO THE LUNGS every 4 hours if needed for wheezing SHORTNESS OF BREATH fluticasone propionate [Flovent HFA] 110 mcg/actuation HFA aerosol inhaler 2 puff INHALATION BID PreserVision AREDS-2 250-90-40-1 mg Capsule 1 tab PO BID pravastatin 40 mg tablet 40 mg PO DAILY aspirin 81 mg tablet,delayed release (DR/EC) 81 mg PO DAILY Gemtesa 75 mg tablet 75 mg PO DAILY Referrals / Follow Up: Shandra Bills MD [Primary Care Provider] - Within 1 Week Disposition Disposition (needs filled in before D/C Order can be placed): Home, Self Care
--- NOTE | 2024-11-03 11:57 | PHA.DC.MC.R ---
Pharmacy [facility] Service has performed discharge medication reconciliation and counseling for this patient. 1. OSELTAMIVIR 30MG PO BID X 5 DAYS 2. PREDNISONE 40MG PO DAILY X 7 DAYS The patient's discharge medication list was reviewed for discrepancies and discrepancies were resolved. The patient was counseled on the following discharge medications and changes in medications for homegoing were reviewed. The Reason for Use, instructions for use, and potential side effects were reviewed for all new medications. The patient's questions regarding all of their medications were answered. The patient was able to verbally demonstrate an understanding of their discharge medications. Medications at Discharge Home Medications carvedilol 12.5 mg tablet 12.5 mg PO BID 10/11/15 levothyroxine 175 mcg tablet 175 mcg PO SUTUWETHFRSA 10/11/15 lisinopril 20 mg tablet 20 mg PO QHS 10/11/15 montelukast 10 mg tablet 10 mg PO QHS 10/11/15 potassium chloride 10 mEq tablet,extended release(part/cryst) 20 meq PO DAILY 10/11/15 L.acidoph,paracasei,B.animalis 10 billion cell capsule 1 ea PO DAILY 02/04/17 amlodipine 5 mg tablet 5 mg PO DAILY 02/04/17 albuterol sulfate 90 mcg/actuation aerosol inhaler 1 puff inhalation PRN PRN asthma 05/07/21 fluticasone propionate 110 mcg/actuation HFA aerosol inhaler (Flovent HFA) 2 puff inhalation BID asthma 05/07/21 levothyroxine 150 mcg tablet 150 mcg PO MO 05/07/21 vit C 250 mg-vit E 90 mg-zinc 40 mg-copper 1 bd-ymbqzf-yytliz capsule (PreserVision AREDS-2) 1 tab PO BID 05/07/21 aspirin 81 mg tablet,delayed release 81 mg PO DAILY 11/02/24 pravastatin 40 mg tablet 40 mg PO DAILY 11/02/24 vibegron 75 mg tablet (Gemtesa) 75 mg PO DAILY 11/02/24 oseltamivir 30 mg capsule 30 mg PO BID 5 days #10 caps 11/03/24 prednisone 20 mg tablet 40 mg (2 x 20 mg) PO DAILY 7 days #14 tabs 11/03/24
--- NOTE | 2024-11-03 13:00 | CASEMGMT ---
Patient has order for discharge. Patient qualifies for home oxygen, script received. KIRILL FREED in to discuss needs at discharge. Patient updated regarding home oxygen, prefers [employer] as she has cpap through them. Patient denies further needs or help at discharge. Patient had no further questions or concerns. KIRILL FREED sent referral to [employer] via [employer] and arranged for tank to be delivered to patient's room. KIRILL FREED updated discharge plan.
--- NOTE | 2024-11-03 13:05 | PCM.PN.BLA ---
Progress Note I have reviewed the oxygen testing, and this patient qualifies for the home equipment and portability. The patient is mobile in the home and the community.
--- NOTE | 2024-11-03 17:28 | PCM.DC.SUM ---
Providers Date of Admission: 11/02/24 Primary Care Physician: Dr. Shandra Bills MD Reason For Visit: INFLUENZA, AE ASTHMA Diagnosis Discharge Diagnosis (1) Influenza A: Status: Acute Code(s): J10.1 - Influenza due to other identified influenza virus with other respiratory manifestations (2) Acute asthma exacerbation: Status: Acute Code(s): J45.901 - Unspecified asthma with (acute) exacerbation Medications at Discharge Home Medications carvedilol 12.5 mg tablet 12.5 mg PO BID 10/11/15 levothyroxine 175 mcg tablet 175 mcg PO SUTUWETHFRSA thyroid 10/11/15 lisinopril 20 mg tablet 20 mg PO QHS blood pressure 10/11/15 montelukast 10 mg tablet 10 mg PO QHS allergies 10/11/15 potassium chloride 10 mEq tablet,extended release(part/cryst) 20 meq PO DAILY supplement 10/11/15 L.acidoph,paracasei,B.animalis 10 billion cell capsule 1 ea PO DAILY probiotic 02/04/17 amlodipine 5 mg tablet 5 mg PO DAILY blood pressure 02/04/17 albuterol sulfate 90 mcg/actuation aerosol inhaler 1 puff inhalation PRN PRN asthma 05/07/21 fluticasone propionate 110 mcg/actuation HFA aerosol inhaler (Flovent HFA) 2 puff inhalation BID asthma 05/07/21 levothyroxine 150 mcg tablet 150 mcg PO MO thyroid 05/07/21 vit C 250 mg-vit E 90 mg-zinc 40 mg-copper 1 [id number]-[id number] capsule (PreserVision AREDS-2) 1 tab PO BID supplement 05/07/21 aspirin 81 mg tablet,delayed release 81 mg PO DAILY heart health 11/02/24 pravastatin 40 mg tablet 40 mg PO DAILY cholesterol 11/02/24 vibegron 75 mg tablet (Gemtesa) 75 mg PO DAILY overactive bladder 11/02/24 oseltamivir 30 mg capsule 30 mg PO BID 5 days #10 caps 11/03/24 prednisone 20 mg tablet 40 mg (2 x 20 mg) PO DAILY 7 days #14 tabs 11/03/24 Hospital Course Operations None Procedures None Summary of Care Provided Minutes Spent on Discharge: 32 Hospital Course: Per HPI: MÓNICA OVIEDO, is a 84 F who presents with weakness, myalgias, arthralgias, chills, shortness of breath this been ongoing for 3 days. Presented to the emergency room because she just felt so terrible. Positive for influenza A. Patient was noted to be hypoxic and did require oxygen. Patient has a history of asthma and did receive bronchodilators and methylprednisolone. Patient did get influenza vaccine this year. Patient states that her is also sick at home Hospital Course: 1. Acute hypoxic respiratory insufficiency secondary to influenza A in the setting of a history of asthma with acute exacerbation?84-year-old female presented to the hospital with increasing shortness of breath. She was found to test positive for influenza which likely initiated her asthma exacerbation leading to her acute hypoxic respiratory insufficiency. She had 2 L with ambulation and at rest during his hospitalization. We discussed the role of Tamiflu as well as steroids and she requested to be discharged home. She says that she had felt much better especially with the oxygen. I discussed with her the possibility of staying 1 more day however she felt that she would do okay at home. I discussed with her the plan for discharge and she expressed understanding of the risks and benefits of going home and would like to go home today. Will continue with Tamiflu for 5 more days and of a steroid burst of 7 days of prednisone 40 mg p.o. daily. I recommend that she follow-up with her PCP in 3 to 5 days for outpatient monitoring. 2. Essential hypertension, hypothyroidism, hyperlipidemia are all chronic medical conditions which complicate her care. Her home medications were continued where appropriate Physical Exam Narrative General: Alert, Oriented x3, Cooperative, No apparent distress HEENT: Atraumatic, PERRLA, EOMI, Normocephalic Oral: Moist Mucosa Neck: Supple, No JVD Lungs: Diminished, Normal air movement, No rhonchi, scattered wheeze, No rales Cardiovascular: Regular rate, Regular Rhythm, Normal S1, Normal S2, No murmurs Abdomen: Soft, Non Tender, Non-Distended, No Hepato-splenomegaly Extremities: No edema, Capillary Refill Less than 3 Seconds Skin: No rashes, No breakdown Musculoskeletal: No Tenderness to Palpation of Joints or Extremities Neurological: No focal neurological deficits, Motor Exam 5/5 strength throughout, Sensory exam intact to light touch and pain Psych/Mental Status: Normal Affect, Appropriate Weight / BMI Weight Weight: 182 lb 1.629 oz Body Mass Index (BMI) 29.4 ABG / Lab / Microbiology Data 11/03/24 05:59 11/03/24 05:59 Laboratory: Laboratory Results - last 24 hr 11/02/24 17:25: Troponin T Hi Sens 2 Hr 10, Troponin T Hi Sens 2Hr Delta 4 11/03/24 05:59: WBC 3.0 L, RBC 5.45 H, Hgb 15.4 H, Hct 47.1 H, MCV 86.4, MCH 28.3, MCHC 32.7, RDW Std Deviation 39.8, RDW Coeff of Collin 12.5, Plt Count 150, MPV 9.7, Immature Gran % (Auto) 0.700, Neut % (Auto) 68.9, Lymph % (Auto) 26.7, Baldwin % (Auto) 3.7, Eos % (Auto) 0.0, Baso % (Auto) 0.0, Absolute Neuts (auto) 2.1, Absolute Lymphs (auto) 0.80 L, Nucleated RBC % 0, Sodium 138, Potassium 3.7, Chloride Direct 98, Carbon Dioxide 24.3, Anion Gap 16 H, BUN 18, Creatinine 0.6, Estim Creat Clear Calc 58.73, Est GFR (MDRD) Non-Af 90, BUN/Creatinine Ratio 30.8 H, Glucose 152 H, Calcium 8.8 Microbiology: Microbiology 11/02/24 15:41 Mucosa - Nose SARS-CoV-2, Influenza & RSV (PCR) - Final Influenzae A D/C Instructions Discharge Diet: Low fat / Low cholesterol Call your doctor if you observe: Fever of 101 or Higher, Shortness of breath, Dizziness, Fainting spells, Swelling in the ankles, Chest pain and Increased palpitations (irregular heartbeat) DC O2, CPAP, BIPAP Needs PSN CPAP & BiPAP: BiPAP & CPAP Settings per PSN Fraction of Inspired Oxygen ( 11/02/24 18:59 FIO2) Home O2 Discharge instructions: No Meaningful Use Info Meaningful Use Meaningful Use Diagnoses (Choose all that apply): None applicable Ischemic Stroke Statin Dosing Therapy Reference: STATIN DOSE THERAPY REFERENCE: * Patients > 75 years receive moderate or high dose statin therapy. * Patients 75 years or YOUNGER should receive HIGH intensity statin dose unless contraindicated. You will be required to document reason for non-treatment if statin daily dose does not meet guidelines. HIGH DOSE STATIN THERAPY DAILY Atorvastatin > than or = to 40 mg Rosuvastatin > than or = to 20 mg Amlodipine + Atorvastatin > than or = to 2.5/40 mg Ezetimibe + Simvastatin 10/80 mg Simvastatin 80mg Discharge Plan Admission Admit Date/Time: 11/02/24 18:11 Attending Provider: Gregorio Contreras Primary Care Provider: Shandra Bills Consulting Providers: Gamaliel Upton Discharge Orders/Prescriptions Prescriptions: New oseltamivir 30 mg Capsule 30 mg PO BID 5 Days Qty: 10 0RF prednisone 20 mg tablet 40 mg PO DAILY 7 Days Qty: 14 0RF Continued levothyroxine 175 MCG tablet 175 mcg PO SUTUWETHFRSA Patient Comments: thyroid carvedilol 12.5 MG tablet 12.5 mg PO BID Patient Comments: heart rate/ blood pressure lisinopril 20 MG tablet 20 mg PO QHS Patient Comments: blood pressure montelukast 10 MG tablet 10 mg PO QHS Patient Comments: allergies potassium chloride 10 MEQ tablet 20 meq PO DAILY Patient Comments: supplement amlodipine 5 MG tablet 5 mg PO DAILY shan Braun B.animalis 1 EACH capsule 1 ea PO DAILY levothyroxine 150 mcg Tablet 150 mcg PO MO albuterol sulfate 90 mcg/actuation HFA aerosol inhaler 1 puff INHALATION PRN PRN (Reason: asthma) Patient Comments: inhale 2 puffs by mouth and INTO THE LUNGS every 4 hours if needed for wheezing SHORTNESS OF BREATH fluticasone propionate [Flovent HFA] 110 mcg/actuation HFA aerosol inhaler 2 puff INHALATION BID PreserVision AREDS-2 250-90-40-1 mg Capsule 1 tab PO BID pravastatin 40 mg tablet 40 mg PO DAILY aspirin 81 mg tablet,delayed release (DR/EC) 81 mg PO DAILY Gemtesa 75 mg tablet 75 mg PO DAILY Referrals / Follow Up: Shandra Bills MD [Primary Care Provider] - Within 1 Week Disposition Disposition (needs filled in before D/C Order can be placed): Home, Self Care Charges/Coding Visit Charges Inpatient E&M: 20464 Disch Hosp >30min
== END 2024-11-03 15:30 | disposition home or self-care (01) | DRG 203 ==
LOC: ED 17:36 → PCU 19:59
PROVIDERS: Emergency Provider Surgery; PCP Internal Medicine; Visit Provider Family Medicine
DX: J45.901 Unspecified asthma with (acute) exacerbation (principal); E03.9 Hypothyroidism, unspecified; I10 Essential (primary) hypertension; J10.1 Influenza due to other identified influenza virus with other respiratory manifestations; E87.6 Hypokalemia; E78.00 Pure hypercholesterolemia, unspecified; G47.30 Sleep apnea, unspecified; Z90.710 Acquired absence of both cervix and uterus; R09.02 Hypoxemia; Z99.89 Dependence on other enabling machines and devices; Z79.899 Other long term (current) drug therapy; Z79.82 Long term (current) use of aspirin; Z98.51 Tubal ligation status; Z96.651 Presence of right artificial knee joint
CPT/HCPCS: 36415; 71046; 80048; 84484; 85025; 87631; 93005; 94640; 94760; 97802; 99252; 99284; A4216; G0463